=== PATIENT | female | born 1935 | race Caucasian/White ===

== ENCOUNTER 2017-07-26 11:21 | Inpatient (IN) | payer MEDICARE, BC ==
[~2017-07-26] VITALS: Ht 157.5 cm; Wt 119.7 kg
[~2017-07-26 11:21] MED LIST: ALBUTEROL S2.5 MG/.5 IN; ALBUTEROL S2.5 MG/.5 INH; ALPRAZOLAM0.5 MG PO; AMBIEN10 MG PO; ASTEPRO0.15 %; ATIVAN0.5 MG PO; AUGMENTIN OR; B-12500 MC1 OR; B12 LIQUID PO; B12-ACTIVE1 MG PO; BENAZEPRIL20 MG PO; BIOTUSSIN PO; CALCIUM + D600 MG PO; CARDIZEM CD 180 PO; CARTIA XT240 MG/24 PO; CARVEDILOL3.125 MG OR; CEPHALEXIN500 MG OR; CLARITIN10 M1 PO; CLARITIN10 MG OR; CLARITIN10 MG PO; CLARITIN5 MG PO; COMBIVENT IN; CORDARONE/200 MG/TAB OR; CORDARONE200 MG PO; COREG6.25 MG OR; COUMADIN3 MG PO; COUMADIN6 MG PO; DIGOXIN0.125 MG PO; DILTIAZEM240 MG PO; FERROUS SUL2 OR; GLIPIZIDE10 MG PO; GLYBURID MCR1.5 MG OR; GLYBURID MCR3 MG PO; GLYBURID MCR6 M1 PO; HYDROCHLOROT12.5 MG PO; HYDROCO/APAP1 TA1 OR; IMIPRAM HCL50 MG OR; IMIPRAM HCL50 MG PO; IPRATROPIUM BROMIDE/ IN; KEFLEX500 MG PO; LANOXIN0.25 MG PO; LASIX 40 MG TAB40 MG PO; LEVEMIR SC; LEVEMIR1000 UNITS SC; LEVOTHROID175 MCG OR; LEVOTHYROXIN112 MCG PO; LEVOTHYROXIN150 MC1 PO; LEVOTHYROXIN150 MCG PO; LEVOTHYROXIN175 MCG PO; LEVOTHYROXIN200 MC2 PO; LOPRESSOR25 MG PO; LORAZEPAM0.5 MG PO; LORTAB 7.57.5 MG/TAB PO; MEDDOSEPAK PO; MELATONIN5 M3 PO; METFORMIN1000 MG PO; POT CHLORIDE10 ME5 PO; PREDNISONE10 MG PO; ROBITUSSIN AC10 ML OR; TOFRANIL50 MG OR; ULTRAM50 M1 PO; VANTIN200 M1 PO; WARFARIN3 MG PO; WARFARIN5 MG OR; WARFARIN6 MG PO
--- NOTE | 2017-07-26 11:21 | NUR ---
TO ROOM 14 VIA STRETCHER BY EMS. ALERT. COOPERATIVE. TAKES FEW STEPS WITH WALKER AT HOME. LIVES ALONE BUT HAS CAREGIVERS.
[2017-07-26 13:14] LABS: HEMATOCRIT 34.8 % (37.0-47.0); HEMOGLOBIN 11.2 g/dl (12.0-16.0); IMMATURE GRANULOCYTES 1.2 % (0.0-1.0); MEAN CORPUSCULAR HGB 28.6 pG CALC (26.0-32.0); MEAN CORPUSCULAR HGB CONC 32.2 g/L CALC (32.0-36.0); NEUT# 7.62 thou/uL (2.00-7.15); RED BLOOD COUNT 3.91 mill/uL (4.20-5.60); RED CELL DISTRI WIDTH 17.1 % (11.5-15.5)
[2017-07-26 13:28] LABS: ALBUMIN 3.7 g/dL (3.2-5.0); ALKALINE PHOSPHATASE 99 u/l (38-126); ANION GAP 15 (6-22 (CALC)); BILIRUBIN, TOTAL 0.5 mg/dL (0.0-1.4); BUN 25 mg/dL (8-23); BUN/CREATININE RATIO 25 (12-20 (CALC)); CALCIUM 9.3 mg/dL (8.4-10.2); CARBON DIOXIDE 34 mmol/l (22-30); CHLORIDE 94 mmol/l (95-108); GFR 53 ML/MIN (>=60 (CALC)); GFR FOR AFR.AMER. > 60 ML/MIN (>=60 (CALC)); GLUCOSE 241 mg/dL (82-115); POTASSIUM 3.1 mmol/l (3.5-5.1); SGOT/AST 20 u/l (9-36); SGPT/ALT 40 u/l (11-66); SODIUM 140 mmol/l (137-146); TOTAL PROTEIN 7.4 g/dL (6.3-8.2)
[2017-07-26 13:37] LABS: MYOGLOBIN 94 ng/mL (0 - 62)
--- NOTE | 2017-07-26 13:55 | NUR ---
SBAR PRINTED TO FLOOR
[2017-07-26 14:05] LABS: URINE BILIRUBIN - DIPSTICK NEGATIVE (NEGATIVE); URINE BLOOD DIPSTICK NEGATIVE (NEGATIVE); URINE CLARITY CLEAR; URINE COLOR YELLOW; URINE GLUCOSE - DIPSTICK NEGATIVE (NEGATIVE); URINE KETONE NEGATIVE (NEGATIVE); URINE LEUK ESTERASE NEGATIVE (NEGATIVE); URINE NITRITE - DIPSTICK NEGATIVE (Negative); URINE PH 6.5 (4.5-8.0); URINE PROTEIN - DIPSTICK NEGATIVE (NEG-TRACE); URINE UROBILINOGEN - DIPSTICK 0.2 E.U./dL (0.2)
[2017-07-26] MEDS ORDERED: LEVEMIR100 UNIT/M SC (15:38)
--- NOTE | 2017-07-26 15:59 | NUR ---
DURING HER STAY IN ER, PT HAD MOROCHO 18F PLACED, IV ESTABLISHED WITH BLOOD DRAW, MED LIST UPDATED. PT TAKEN TO ICU-2 OVERFLOW PT, REPORT WAS TO TRACIE.
[2017-07-26 16:00] VITALS: BP 119/62
--- NOTE | 2017-07-26 16:00 | NUR ---
PT ARRIVED TO FLOOR VIA STRETCHER ACCOMPANIED BY NIRU GARCIA. PT ASSISTED TO STANDING SCALE BY STAFF X 2 AND THEN TO BED. LIMITED ROM BILATERAL LEGS R/T EDEMA. FALL PRECAUTIONS REVIEWED. PLAN OF CARE DISCUSSED. REPORTING OF CONCERNS ENCOURAGED. PT ORIENTED TO ROOM AND EQUIPMENT. CALL LIGHT REVIEWED AND IN REACH. NO SOB NOTED. PT DENIES PAIN.
[2017-07-26 16:27] LABS: INTERNATIONAL NORMALIZED RATIO 1.5 RATIO (0.7-1.3); PROTHROMBIN TIME 17.4 SECONDS (9.0-12.5)
--- NOTE | 2017-07-26 17:33 | NUR ---
Scr: 1.0 Height: 60.0 Inches Weight: 125 Kilograms Diagnosis: leg cellulitis, COPD exacerbation BloodCultures pending IBW (kg): 45.50 Dosing wt(kg): 125 Estimated CRCL (ml/min): 53.8 CRCL method: Cockcroft and Gault using adjusted body weight Drug selected: Vancomycin Loading dose (mg): 0 Vd (liters): 93.8 (factor used: 0.75 L/kg) Elimination rate constant (hr-1): 0.049 Half life (hrs): 14.15 Recommended dose (mg): 1000 Interval (hrs): 12 Infusion time: 2.0 Predicted peak (mcg/ml): 22.8 Predicted trough: 13.97 Total body weight is used in all cases for vancomycin dosing. Vancomycin trough to be drawn on 07/28/17 at 0730, 30 minutes prior to the fourth dose. Pharmacy to follow and make recommendations for dose adjustments.
--- NOTE | 2017-07-26 17:34 | NUR ---
FILIBERTO CORRIGAN IN TO SEE PT AT THIS TIME.
--- NOTE | 2017-07-26 19:05 | NUR ---
REPORT FROM NIRU HODGES. ASSUMED PT. CARE.
[2017-07-26 20:00] VITALS: BP 97/40
--- NOTE | 2017-07-26 20:13 | NUR ---
PT. FOUND AWAKE, ALERT, ORIENTED X 3. NO RESP DISTRESS NOTED. SLIGHTLY HYPOTENSIVE, BUT DENIES SYMPTOMS. SKIN WARM AND DRY. SCANT CLEAR DRAINAGE NOTED FROM A LARGE BLISTER THAT THE PATIENT STATES POPPED THIS AM. STATES HER INCREASED REDNESS, BLISTERING AND SWELLING STARTED THIS AM. AFEBRILE. GOOD DISTIL PULSES THROUGHOUT. MURMUR NOTED UPON AUSCULTATION. CLEAR TO UPPER LUNG SATORGA, DIMINISHED TO BASES WHICH MAY BE DUE TO PT. MORBIDLY OBESE BODY HABITUS. IV MAG SULFATE/POTASSIUM CHLORIDE AND VANCOMYCIN INFUSING WITHOUT SX OF INFILTRATION OR EXTRAVASATION.
--- NOTE | 2017-07-26 20:50 | NUR ---
PT. WITH N/V AT THIS TIME. ONLY CLEAR FROTHY PHLEGM LIKE MATERIAL EXPECTORATED. THICK CLEAR MUCOUSY FLUID NOTED. MD CONTACTED AND NEW ORDERS RECEIVED FOR ANTIEMETIC. MEDICATED WITH INSULIN ACCUCHECK 186. WILL CONTINUE TO MONITOR FOR MEDICATION EFFECT.
--- NOTE | 2017-07-26 21:45 | NUR ---
PT. CLEANSED OF EMESIS, GOWN AND LINENS CHANGED. IV VANCO CONTINUES TO INFUSE. K+ RIDER COMPLETE AT THIS TIME. MAG SULFATE DRIP CONTINUES TO INFUSE. NO REACTIONS NOTED TO EACH SITE. PT. PROVIDED WITH ROTATION FAN AND BLANKET PER HER REQUEST. CALL LIGHT REMAINS WITHIN REACH. WILL CONTINUE TO MONITOR FOR APNEA, LOW SPO2 THROUGH THE NIGHT.
[2017-07-27] VITALS: BP 89/40
--- NOTE | 2017-07-27 00:05 | NUR ---
ZOSYN INFUSING WITHOUT SIGNS OF INFILTRATION OR EXTRAVASATIONS. NO REACTIONS NOTED TO INFUSING ZOSYN. PT. REPORTS IMPROVEMENT IN SX OF NAUSEA. DENIES N/V AT THIS TIME. REMAINS A-FIB AT THIS TIME. DENIES COMPLAINTS OF PAIN OR NEED. REMAINS HYPOTENSIVE BUT CONTINUES TO DENY COMPLAINTS OF DIZZINESS OR LIGHTHEADEDNESS. CALL LIGHT REMAINS WITHIN REACH. WILL CONTINUE TO ASSESS.
--- NOTE | 2017-07-27 03:55 | NUR ---
PT. RESTING IN BED WITH EYES CLOSED. RESPS EVEN AND UNLABORED. SPO2 REMAINS SLIGHTLY LOW AT 92-95% ON 2L NC. PT. REMAINS IN A-FIB WITH RATE BETWEEN 90-115 A-FIB. DENIES COMPLAINTS OF PAIN OR NEED. CALL LIGHT REMAINS WITHIN REACH.
[2017-07-27 04:00] VITALS: BP 98/46
--- NOTE | 2017-07-27 05:20 | NUR ---
LAB AT BEDSIDE AT THIS TIME. PT. C/O MODERATE/SEVERE LOWER BACK PAIN. PT. STATES SHE NORMALLY TAKES A PILL AT HOME FOR LOWER BACK PAIN, BUT SHE IS UNSURE WHAT IT IS. NOTIFIED OF PT. C/O PAIN.
--- NOTE | 2017-07-27 06:05 | NUR ---
LAB UNABLE TO OBTAIN BLOOD SPECIMEN. THIS RN WITH DRAW AT THIS TIME. SPECIMEN OBTAINED AND SENT TO LAB. PT. DENIES ANY NEW COMPLAINT OR NEED AT THIS TIME.
[2017-07-27 06:17] LABS: HEMATOCRIT 32.5 % (37.0-47.0); HEMOGLOBIN 10.7 g/dl (12.0-16.0); IMMATURE GRANULOCYTES 2.2 % (0.0-1.0); MEAN CELL VOLUME 89.5 fL CALC (80.0-100.0); MEAN CORPUSCULAR HGB 29.5 pG CALC (26.0-32.0); MEAN CORPUSCULAR HGB CONC 32.9 g/L CALC (32.0-36.0); RED BLOOD COUNT 3.63 mill/uL (4.20-5.60); RED CELL DISTRI WIDTH 17.3 % (11.5-15.5)
[2017-07-27 06:27] LABS: CALCIUM 8.1 mg/dL (8.4-10.2); CREATININE 1.4 mg/dL (0.5-1.0); POTASSIUM 3.2 mmol/l (3.5-5.1)
[2017-07-27 06:57] LABS: MANUAL DIFFERENTIAL YES; PLATELET COUNT 206 thou/uL (130-400)
--- NOTE | 2017-07-27 07:20 | NUR ---
PT RESTING IN BED, AM ASSESSMENT COMPLETED SEE INTERVENTIONS PT HAS 3-4+ EDEMA TO BILATERAL LE WITH REDNESS AND BLISTERS NOTED, PT STATES HER BLE HAVE BEEN RED AND EDEMATOUS FOR 40+ YRS, PT IS MORBIDLY OBESE AND STATES AT HOME SHE HAS A INFUSION RN THAT HELPS HER DURING THE DAY, STATES SHE IS ABLE TO WALK FROM RECLINER TO BATHROOM, BUT OTHERWISE SHE IS IN HER CHAIR ALL DAY, STATES SHE HAS A LIFT CHAIR AND LIFT BED AT HOME, AND THAT SHE WEARS A CPAP MACHINE AT NIGHT, HER "FRIEND" IS SUPPOSED TO BRING IN HER MEDICATIONS TODAY (PER PT) AT MD REQUEST. TELE CONTINUES READING SR RATE IN THE 90'S, BP STABLE IMPROVED THIS AM, PT DENIES ANY COMPLAINTS EXCEPT FOR OCCASIONAL BACK PAIN RELATED TO "THE BED" CALL ELIZALDE WITHIN REACH, COMFORT MEASURES PROVIDED, WILL CONTINUE TO MONITOR.
[2017-07-27 07:23] LABS: BAND 28 % (0-8)
[2017-07-27 07:24] LABS: PLATELET ESTIMATE NORMAL
[2017-07-27 08:00] VITALS: BP 127/61
--- NOTE | 2017-07-27 08:00 | NUR ---
AM MEAL SET UP ASSIST PROVIDED, PT MAX ASSIST TO SIT UP ON EDGE OF BED, CALL ELIZALDE WITHIN REACH.
[2017-07-27 08:25] LABS: INTERNATIONAL NORMALIZED RATIO 1.7 RATIO (0.7-1.3); PROTHROMBIN TIME 19.5 SECONDS (9.0-12.5)
[2017-07-27 08:26] LABS: CHOLESTEROL HDL RATIO 4.3 (<4.4 (CALC))
--- NOTE | 2017-07-27 10:09 | NUR ---
PT BATHED BY BOW REHAIRER AND LINENS CHANGED, CALL ELIZALDE WITHIN REACH IV ABT CONTINUES WITHOUT INCIDENT, AND SHEKHAR DE LOS SANTOS INTO SEE PATIENT EARLIER, PLAN OF CARE DISCUSSED, WILL CONTINUE TO MONITOR.
[2017-07-27 12:00] VITALS: BP 125/67
--- NOTE | 2017-07-27 12:52 | NUR ---
PT RESTING, BP REMAINS IMPROVED, APPETITE GOOD WITH ADEQUATE PO INTAKE, IVF INFUSING AT PRESCRIBED RATE, CALL ELIZALDE WITHIN REACH
--- NOTE | 2017-07-27 14:16 | NUR ---
REPOSITIONS SELF FOR COMFORT, OFFERS NO NEW COMPLAINTS, CALL ELIZALDE WITHIN REACH, WILL CONTINUE TO MONITOR.
[2017-07-27 14:24] LABS: HEMATOCRIT 31.2 % (37.0-47.0); HEMOGLOBIN 10.1 g/dl (12.0-16.0); MEAN CELL VOLUME 90.2 fL CALC (80.0-100.0); MEAN CORPUSCULAR HGB 29.2 pG CALC (26.0-32.0); MEAN CORPUSCULAR HGB CONC 32.4 g/L CALC (32.0-36.0); NEUT# 20.68 thou/uL (2.00-7.15); RED BLOOD COUNT 3.46 mill/uL (4.20-5.60); RED CELL DISTRI WIDTH 17.4 % (11.5-15.5)
--- NOTE | 2017-07-27 17:58 | NUR ---
PM COVERAGE GIVEN AND ABT INFUSING ORDERED, CALL ELIZALDE WITHIN REACH, AND SET UP ASSIST PROVIDED FOR PM MEAL, WILL CONTINUE TO MONITOR.
--- NOTE | 2017-07-27 19:45 | NUR ---
PT IS ALERT AND ORIENTED X3, DENIES PAIN OR NEEDS AT THIS TIME, CONTINUES SR ON MONITOR, HR 98 AT THIS TIME, VSS, LUNGS ARE CLEAR ON AUSCULTATION WITH DIMINISHED BIBASILAR, IV SITE IS PATENT, NO SIGNS OF INFILTRATION NOTED, MORBID OBESITY NOTED, HAS REDNESS WITH WEEPING BLISTERING AND 4+ EDEMA TO BLE, SEE PICTURE IN CHART, RESP ARE EVEN AND UNLABORED ON 2LPM VIA NC, STATES USES CIPAP AT HOME, DID NOT BRING IT, MOROCHO DRAINING BY GRAVITY SMALL AMOUNTS OF DARK MUMTAZ URINE, TINY RED CLOTS NOTED ON TUBING, PT IS ON COUMADIN, COLLECTED URINE SAMPLE AND SENT TO LAB, EXPLAINED PLAN OF CARE AND MED SCHEDULE PT VOICES UNDERSTANDING, SAFETY MEASURES IN PLACE, ENCOURAGED TO CALL IF NEEDED, CALL ELIZALDE AT REACH.
[2017-07-27 20:00] VITALS: BP 140/76
--- NOTE | 2017-07-27 20:47 | NUR ---
ACCU CHECK/FINGERSTICK 331
[2017-07-27 20:50] LABS: URINE BILIRUBIN - DIPSTICK NEGATIVE (NEGATIVE); URINE BLOOD DIPSTICK LARGE (NEGATIVE); URINE COLOR YELLOW; URINE GLUCOSE - DIPSTICK NEGATIVE (NEGATIVE); URINE KETONE NEGATIVE (NEGATIVE); URINE LEUK ESTERASE SMALL (Negative); URINE NITRITE - DIPSTICK NEGATIVE (Negative); URINE PH 5.5 (4.5-8.0); URINE PROTEIN - DIPSTICK TRACE mg/dL (NEG-TRACE); URINE UROBILINOGEN - DIPSTICK 0.2 E.U./dL (0.2)
[2017-07-27 20:51] LABS: URINE CLARITY CLOUDY
[2017-07-27 20:52] LABS: URINE BACTERIA MODERATE hpf; URINE EPITHELIAL CELLS MANY EPI/hpf (0-FEW); URINE RBC 25-50 RBC/hpf (0-5)
--- NOTE | 2017-07-27 21:40 | NUR ---
RT IN PT ROOM ADMINISTERING A BREATHING TX.
--- NOTE | 2017-07-27 23:18 | NUR ---
PT UP TO THE BSC, HAD A LARGE BM, SOFT, BROWN, TOLERATED ACTIVITY WELL, DENIES NEEDS OR PAIN AT THIS TIME, AT BEDSIDE, WILL CONTINUE TO MONITOR.
[2017-07-28] VITALS (8 sets, daily range): BP systolic 93–128; BP diastolic 47–94
--- NOTE | 2017-07-28 00:41 | NUR ---
PT AWAKE, WATCHING TV, ALERT AND ORIENTED X3, DENIES FEELING SOB, RESP ARE EVEN AND UNLABORED, NO DISTRESS NOTED, DENIES NEEDS OR PAIN AT THIS TIME, AFEBRILE, VSS, WILL CONTINUE TO MONITOR. CALL ELIZALDE AT REACH.
--- NOTE | 2017-07-28 04:00 | NUR ---
KENO WRITER / RUNNER UNABLE TO DRAW LABS, THIS CRAB BACKER UNABLE TO DRAW LABS AND UNSUCESSFUL NEW IV START D/T MORBID OBESITY, CALLED HOUSE SUP FOR NEW IV START, 22G RAC AND 22G R WRIST FOUND OCCLUDED, REMOVED IV SITES D/T OCCLUSION, IV LOREN TIP INTACT. NO DISTRESS NOTED DURING NEW IV START ATTEMPT, PT TOLERATED ACTIVITY WELL, WILL CONTINUE TO MONITOR. CALL ELIZALDE AT [facility].
--- NOTE | 2017-07-28 05:48 | NUR ---
LAB TECHN, AMY, AND HOUSE SUP IN PT ROOM, TRYING TO DRAW MORNING LABS AND START A NEW IV.
[2017-07-28 06:09] LABS: HEMOGLOBIN 10.5 g/dl (12.0-16.0); IMMATURE GRANULOCYTES 0.7 % (0.0-1.0); MEAN CELL VOLUME 88.9 fL CALC (80.0-100.0); MEAN CORPUSCULAR HGB 29.2 pG CALC (26.0-32.0); MEAN CORPUSCULAR HGB CONC 32.8 g/L CALC (32.0-36.0); NEUT# 12.26 thou/uL (2.00-7.15); RED BLOOD COUNT 3.6 mill/uL (4.20-5.60); RED CELL DISTRI WIDTH 17.3 % (11.5-15.5)
--- NOTE | 2017-07-28 06:15 | NUR ---
SEALER SANDER JORJE CHEEMA RN, ABLE TO START A NEW IV SITE AFTER X5 UNSUCCESSFUL ATTEMPTS, #24 IN RIG CHEST WALL, WILL INFUSE ZOSYN PER ORDERS, PT C/O PAIN IN RIGHT SHOULDER AND BACK, STATES THIS IS CHRONIC PAIN, STATES WAS PREVIOUSLY MEDICATED WITH LORTAB AND "IT HELPED", NO PAIN MED ORDERS, WILL NOTIFY OF PT REQUEST. CALL ELIZALDE AT [facility], WILL CONTINUE TO MONITOR.
[2017-07-28 06:21] LABS: INTERNATIONAL NORMALIZED RATIO 2.1 RATIO (0.7-1.3)
[2017-07-28 06:25] LABS: CALCIUM 7.9 mg/dL (8.4-10.2); CREATININE 1.2 mg/dL (0.5-1.0); POTASSIUM 3.3 mmol/l (3.5-5.1)
--- NOTE | 2017-07-28 07:25 | NUR ---
PT RESTING IN BED, AM ASSESSMENT COMPLETED SEE INTERVENTIONS PT HAS 3-4+ EDEMA TO BILATERAL LE WITH REDNESS AND BLISTERS NOTED, PT CONFIRMS THIS IS NOT NEW PT EDUCATED REGARDING THE IMPORTANCE OF INCREASED ACTIVITY, STATES SHE IS ABLE TO WALK FROM RECLINER TO BATHROOM AT HOME, BUT OTHERWISE SHE IS IN HER CHAIR ALL DAY, STATES SHE HAS A LIFT CHAIR AND LIFT BED AT HOME, AND THAT SHE WEARS A CPAP MACHINE AT NIGHT, BUT DID NOT BRING IT WITH HER, PT DENIES ANY COMPLAINTS EXCEPT FOR OCCASIONAL BACK PAIN RELATED TO "THE BED" CALL ELIZALDE WITHIN REACH, COMFORT MEASURES PROVIDED, WILL CONTINUE TO MONITOR.
--- NOTE | 2017-07-28 08:00 | NUR ---
SET UP ASSIST PROVIDED FOR AM MEAL, CALL ELIZALDE WITHIN REACH, MAX ASSIST TO REPOSITION IN BED, WILL CONTINUE TO MONITOR
--- NOTE | 2017-07-28 08:52 | NUR ---
SHEKHAR DE LOS SANTOS IN TO SEE PATIENT
--- NOTE | 2017-07-28 10:20 | NUR ---
S: ABBY PRESCOTT is a 81 F who presents with SOB and cellulitis. O: VS: BP 113/59, P 68 beats/min, RR 18 breaths/min, T 98.1 W 119.748 kg, HT 5 ft 2 in, Scr= 1.2 ,CrCl= 37 ml/min Vancomycin trough = 17 mcg/ml (2 hrs prior to next scheduled dose) A: Preliminary Blood culture growing gram positive cocci in 1 of 2 sets. Urine culture is pending. Vancomycin trough is within therapeutic range. P: Patient is on Zosyn 3.375 g IV q6h and vancomycin 1 g IV q12h. Vancomycin ordered for pharmacy to dose. Continue vancomycin 1 g IV Q12H. Vancomycin trough to be drawn on 07/30/17 at 0730. Vancomycin goal trough is between 10-20 mcg/ml. Pharmacy will follow and or advise on antibiotics use as needed.
--- NOTE | 2017-07-28 11:15 | NUR ---
ACCU CHECK COMPLETED, WILL PROVIDE COVERAGE ORDERED, PT CONTINUES TO HAVE FLUID FILLED BLISTERS ON BILATERAL LE, IVF CONTINUE ORDERED. GOOD ASPIRATE NOTED WITH IV SITE
--- NOTE | 2017-07-28 12:02 | NUR ---
MEDICATED FOR COMAPLINTS OF PAIN IN R LULU, REPOSIOTIONED FOR COMFORT AND SET UP ASSIST PROVIDED FOR AFTERNOON MEAL
--- NOTE | 2017-07-28 14:18 | NUR ---
PHYSICAL THERAPY WORKED WITH PATIENT OOB TO CHAIR, CALL ELIZALDE WITHIN REACH
--- NOTE | 2017-07-28 16:21 | NUR ---
VISITOR AT BEDSIDE, OFFERS NO NEW COMPLAINTS, RESTING IN BED, IVF INFUSING AT KVO, CALL ELIZALDE WITHIN REACH.
--- NOTE | 2017-07-28 18:19 | NUR ---
set up assist provided for pm meal
--- NOTE | 2017-07-28 19:45 | NUR ---
PT AWAKE RESTING IN BED. PT IS ALERT AND ORIENTED X4. O2 N/C ON AT 2L. O2 SAT 96%. RESP EVEN AND UNLABORED. LUNGS REVEAL DIMINISHED BREATH SOUNDS IN BILAT BASES. ABD SOFT WITH BOWEL SOUNDS PRESENT. MOROCHO IS PATENT DRAINING MUMTAZ URINE WITH SEDIMENT. PT HAS +2 BILAT LOWER EXT EDEMA NOTED. PEDAL PULSES PALPATED BILAT. PT HAS 2 BLISTERED AREAS NOTED ON EACH BILAT LOWER EXT. NO WEEPING OR DRAINING NOTED. BILAT LOWER EXT ARE DISCOLORED WITH SKIN INTACT. IV SITE PATENT RT WRIST NSS AT KVO NO REDNESS,SWELLING OR TENDERNESS AT SITE. PT ASSISTED WITH REPOSITIONING. PT DENIES ANY PAIN OR DISCOMFORT. MONITOR READING ST HR 103. FREQUENT ROUNDS MADE. CALL ELIZALDE WITHIN REACH.
[2017-07-28] MEDS ORDERED: LOPRESSOR25 M1 PO (20:52)
[2017-07-28] MEDS ORDERED: CARDIZEM CD240 MG PO (20:53)
--- NOTE | 2017-07-28 22:00 | NUR ---
PT RESTING IN BED. RESP EVEN AND UNLABORED. VSS. IV SITE PATENT NO REDNESS OR SWELLING AT SITE. PT OFFERS NO COMPLAINTS. ATE EVENING SNACK. FREQUENT ROUNDS MADE. CALL ELIZALDE WITHIN REACH.
--- NOTE | 2017-07-28 22:40 | NUR ---
RECEIVED PATIENT FROM THE ICU VIA BED AND IN STABLE CONDITION. PATIENT SETTLED TO BED. VS 98.3-96-18, BP 93/73.
--- NOTE | 2017-07-28 22:45 | NUR ---
REPORT CALLED TO SAY MARRUFO ON MED SURG. PT TRANSFERRED VIA BED WITH HER BELONGINGS AND CELL PHONE.
--- NOTE | 2017-07-29 04:00 | NUR ---
NO APPARENT ACUTE CHANGES NOTED IN PATIENT'S CONDITION.
[2017-07-29 05:41] VITALS: BP 108/69
[2017-07-29 05:50] LABS: HEMATOCRIT 33.2 % (37.0-47.0); HEMOGLOBIN 10.4 g/dl (12.0-16.0); IMMATURE GRANULOCYTES 0.5 % (0.0-1.0); MEAN CELL VOLUME 91.5 fL CALC (80.0-100.0); MEAN CORPUSCULAR HGB 28.7 pG CALC (26.0-32.0); MEAN CORPUSCULAR HGB CONC 31.3 g/L CALC (32.0-36.0); NEUT# 7.43 thou/uL (2.00-7.15); RED BLOOD COUNT 3.63 mill/uL (4.20-5.60); RED CELL DISTRI WIDTH 17.3 % (11.5-15.5)
[2017-07-29 05:56] LABS: PROTHROMBIN TIME 22.7 SECONDS (9.0-12.5)
[2017-07-29 05:57] LABS: ANION GAP 15 (6-22 (CALC)); BUN 21 mg/dL (8-23); BUN/CREATININE RATIO 22 (12-20 (CALC)); CARBON DIOXIDE 32 mmol/l (22-30); CHLORIDE 99 mmol/l (95-108); CREATININE 0.9 mg/dL (0.5-1.0); GFR 60 ML/MIN (>=60 (CALC)); GFR FOR AFR.AMER. > 60 ML/MIN (>=60 (CALC)); GLUCOSE 115 mg/dL (82-115); MAGNESIUM 1.5 mg/dL (1.6-2.3); POTASSIUM 3.8 mmol/l (3.5-5.1); SODIUM 142 mmol/l (137-146)
--- NOTE | 2017-07-29 08:44 | NUR ---
ASSESSMENT IS COMPLETED: IV SITE IS FREE FROM REDNESS OR EDEMA. MOROCHO INTACT. CONTNUE TO OBSERVE AND MONITOR.
--- NOTE | 2017-07-29 10:16 | NUR ---
PATIENT WAS SEEN AT BEDSIDE TODAY. SHE WAS GIVEN MOD ASSIST FOR SUPINE TO SIT. MIN ASSIST FOR SCOOTING TOWARDS EDGE OF BED. PATIENT WAS ABLE TO PERFORM SIT TO STAND WITH STAND BY ASSIST. WITH ROLLING WALKER, PATIENT PERFORM PIVOT TRANSFER INTO THE BEDSIDE RECLINER WITH VERBAL CUES AND STAND BY ASSIST. PATIENT RECEIVED BREATHING TREATMENT WHILE SITTING IN THE BEDSIDE RECLINER.
[2017-07-29 11:40] VITALS: BP 129/83
--- NOTE | 2017-07-29 12:15 | NUR ---
PT HAS BEEN IN THE CHAIR, NO DISTRESS NOTED. IV SITE IS FREE FROM REDNESS OR EDEMA. CONTINUE TO OBSERVE AND MONITOR.
[2017-07-29] MEDS ORDERED: LEVOTHYROXIN112 MC1 PO (13:48)
[2017-07-29] MEDS ORDERED: TRAMADOL HCL50 MG PO (13:48)
[2017-07-29] MEDS ORDERED: FLORASTOR250 M1 PO (13:48)
[2017-07-29] MEDS ORDERED: CUBICIN RF500 MG IV (13:51)
[2017-07-29 15:16] VITALS: BP 104/70
--- NOTE | 2017-07-29 16:15 | NUR ---
PT IS BACK IN BED WITH NO DISTRESS NOTED. IV SITE IS FREE FROM REDNESS OR EDEMA.
--- NOTE | 2017-07-29 19:30 | NUR ---
BEDSIDE REPORT RECEIVED FROM TOMAS TAMAYO. PT SITTING UP IN BED AT THIS TIME. DENIES PAIN CURRENTLY. RESPIRATIONS EVEN AND UNLABORED ON 2L OF OXYGEN. PLAN OF CARE DISCUSSED. PT ENCOURAGED TO VERBALIZE CONCERNS. STATES UNDERSTANDING. BLISTERS REMAIN TO BLE WITH EDEMA AND REDNESS. IV SITE LEAKING. NEW IV STARTED TO RIGHT UPPER CHEST. COUDY YELLOW URINE DRAINING FROM INDWELLING MOROCHO CATHETER IN ADEQUATE AMOUNTS. SAFETY MEASURES IN PLACE. CALL LIGHT WITHIN REACH.
--- NOTE | 2017-07-30 00:18 | NUR ---
PT ASLEEP AT THIS TIME. NO SIGNS OF DISTRESS NOTED. REPSIRATIONS EVEN AND UNLABORED. PT TURNED EVERY 2 HOURS; MOROCHO CARE PROVIDED. USES CALL LIGHT NEEDED. SAFETY MEASURES IN PLACE. CALL LIGHT WITHIN REACH.
--- NOTE | 2017-07-30 02:43 | NUR ---
IV SITE TO RIGHT SUBCLAVIAN AREA APPEARS INFILTRATED AFTER VANCOMYCIN INFUSION. ALL STAFF NURSES ATTEMPTED NEW SITE MULTIPLE TIMES WITHOUT SUCCESS. PT CURRENTLY WITHOUT PATENT IV ACCESS. UNABLE TO INFUSE MIDNIGHT DOSE OF ZOSYN. WILL REPORT TO IN AM.
--- NOTE | 2017-07-30 04:00 | NUR ---
PT ASLEEP AT THIS TIME. NO SIGNS OF DISTRESS NOTED. RESPIRATIONS EVEN AND UNLABORED WITH OXYGEN IN PLACE. NO CHANGES IN ASSESSMENT. CONDITION IS STABLE. LOWER EXTREMITIES ELEVATED ON PILLOWS FOR SWELLING. BLISTERS REMAIN INTACT, NO SEEPING NOTED. SAFETY MEASURES IN PLACE. CALL LIGHT WITHIN REACH.
[2017-07-30 04:50] VITALS: BP 119/76
[2017-07-30 06:29] LABS: HEMATOCRIT 33.5 % (37.0-47.0); HEMOGLOBIN 10.5 g/dl (12.0-16.0); IMMATURE GRANULOCYTES 0.5 % (0.0-1.0); MEAN CELL VOLUME 90.8 fL CALC (80.0-100.0); MEAN CORPUSCULAR HGB 28.5 pG CALC (26.0-32.0); MEAN CORPUSCULAR HGB CONC 31.3 g/L CALC (32.0-36.0); NEUT# 6.23 thou/uL (2.00-7.15); RED BLOOD COUNT 3.69 mill/uL (4.20-5.60); RED CELL DISTRI WIDTH 17.1 % (11.5-15.5)
[2017-07-30 06:43] LABS: ANION GAP 12 (6-22 (CALC)); BUN 18 mg/dL (8-23); BUN/CREATININE RATIO 21 (12-20 (CALC)); CALCIUM 7.8 mg/dL (8.4-10.2); CARBON DIOXIDE 34 mmol/l (22-30); CHLORIDE 98 mmol/l (95-108); CREATININE 0.8 mg/dL (0.5-1.0); GFR > 60 ML/MIN (>=60 (CALC)); GFR FOR AFR.AMER. > 60 ML/MIN (>=60 (CALC)); GLUCOSE 150 mg/dL (82-115); MAGNESIUM 1.9 mg/dL (1.6-2.3); POTASSIUM 3.7 mmol/l (3.5-5.1); SODIUM 141 mmol/l (137-146)
[2017-07-30 06:45] LABS: INTERNATIONAL NORMALIZED RATIO 1.7 RATIO (0.7-1.3); PROTHROMBIN TIME 19.5 SECONDS (9.0-12.5)
--- NOTE | 2017-07-30 08:00 | NUR ---
ASSESSMENT IS COMPLETED: IV SITE IS FREE FROM REDNESS OR EDEMA. CONTINUE TO OBSERVE AND MONITOR.
[2017-07-30 09:28] VITALS: BP 98/60
--- NOTE | 2017-07-30 09:30 | NUR ---
Vancomycin consult Weight: 119.7 Kilograms Vancomycin single level analysis: Current dose being given: 1000 mg Current dosing interval: 12 hrs Current infusion time (hrs): 2 Single level Trough Data: Trough level obtained: 21 mcg/ml Timing of trough - Number of hours before next dose: 0.5 Hrs Desired peak: 30 mcg/ml Desired trough: 15 mcg/ml Estimated PK Parameters: New rate constant (rama): 0.039 hr-1 New half-life: 17.77 Hours New Vd from levels: 83.79 Liters (0.7 L/kg) Give Vancomycin 2000 mg Q24H Infuse over 2 hrs Expected Cpeak: 38 mcg/ml Expected Ctrough: 16.0 mcg/ml
--- NOTE | 2017-07-30 10:30 | NUR ---
PT'S MOROCHO DISCONTINUED CATHETER INTAC.T NO DISTRESS NOTED. IV SITE IS FROM REDNESS
[2017-07-30] MEDS ORDERED: KEFLEX500 M1 PO (11:13)
[2017-07-30] MEDS ORDERED: LEVEMIR100 UNIT/M SC (11:20)
--- NOTE | 2017-07-30 12:00 | NUR ---
PT IS SITING IN THE CHAIR ALL BELONGINGS SENT WITH BATH ATTENDANT, IV SITE REMOVED AND IS CDI. PT TOLERATED WELL.
--- NOTE | 2017-07-30 13:20 | NUR ---
DISCHARGE INSTRUCTIONS GIVEN AND VERBALIZED UNDERSTANDING Discharge instructions given. Patient verbalizes understanding of same. Discharged in stable condition via Wheelchair to Home with family. All belongings sent with pt.
== END 2017-07-30 13:11 | DRG 638 ==
LOC: ED 11:21 → ED-I 13:44 → ED 14:49 → ICU 14:50 → MS2 07-27 09:03 → ICU 07-27 09:03 → MS2 07-28 22:44
PROVIDERS: Emergency Medicine; Nurse Practitioner Family; ADMIT Internal Medicine; ATTEND Internal Medicine
PROC: 0T9B70Z Drainage of Bladder with Drainage Device, Via Natural or Artificial Opening (ICD-10-PCS; principal; 2017-07-26)
DX: E11.628 Type 2 diabetes mellitus with other skin complications (principal); L03.116 Cellulitis of left lower limb; N17.9 Acute kidney failure, unspecified; L03.115 Cellulitis of right lower limb; J44.1 Chronic obstructive pulmonary disease with (acute) exacerbation; Z68.42 Body mass index [BMI] 45.0-49.9, adult; I13.0 Hypertensive heart and chronic kidney disease with heart failure and stage 1 through stage 4 chronic kidney disease, or unspecified chronic kidney disease; I50.32 Chronic diastolic (congestive) heart failure; E11.22 Type 2 diabetes mellitus with diabetic chronic kidney disease; I48.2 Chronic atrial fibrillation; E86.0 Dehydration; Z99.81 Dependence on supplemental oxygen; E66.01 Morbid (severe) obesity due to excess calories; N18.9 Chronic kidney disease, unspecified; G47.33 Obstructive sleep apnea (adult) (pediatric); G89.29 Other chronic pain; M54.5 Low back pain; E83.42 Hypomagnesemia; E87.6 Hypokalemia; N31.9 Neuromuscular dysfunction of bladder, unspecified; Z79.01 Long term (current) use of anticoagulants; Z79.4 Long term (current) use of insulin; Z59.1 Inadequate housing
CPT/HCPCS: J3370; J3475

== ENCOUNTER 2017-10-07 11:16 | Inpatient (IN) | payer MEDICARE, BC ==
[~2017-10-07] VITALS: Ht 157.5 cm; Wt 120.3 kg
[~2017-10-07 11:16] MED LIST changes: +CARDIZEM CD240 MG PO; +CUBICIN RF500 MG IV; +FLORASTOR250 M1 PO; +KEFLEX500 M1 PO; +LEVEMIR100 UNIT/M SC; +LEVOTHYROXIN112 MC1 PO; +LOPRESSOR25 M1 PO; +TRAMADOL HCL50 MG PO
[2017-10-07] MEDS ORDERED: COLACE100 MG PO (11:48)
[2017-10-07] MEDS ORDERED: HUMALOG100 UNIT/M SC (11:50)
[2017-10-07] MEDS ORDERED: KLOR-CON 1010 MEQ PO (11:55)
[2017-10-07] MEDS ORDERED: SINGULAIR10 MG PO (11:55)
[2017-10-07 12:26] LABS: HEMATOCRIT 35.3 % (37.0-47.0); HEMOGLOBIN 10.8 g/dl (12.0-16.0); IMMATURE GRANULOCYTES 0.6 % (0.0-1.0); MEAN CELL VOLUME 92.4 fL CALC (80.0-100.0); MEAN CORPUSCULAR HGB 28.3 pG CALC (26.0-32.0); MEAN CORPUSCULAR HGB CONC 30.6 g/L CALC (32.0-36.0); NEUT# 6.48 thou/uL (2.00-7.15); RED BLOOD COUNT 3.82 mill/uL (4.20-5.60); RED CELL DISTRI WIDTH 16.4 % (11.5-15.5)
[2017-10-07 12:47] LABS: ALBUMIN 3.8 g/dL (3.2-5.0); ALKALINE PHOSPHATASE 85 u/l (38-126); ANION GAP 10 (6-22 (CALC)); BILIRUBIN, TOTAL 0.5 mg/dL (0.0-1.4); BUN 20 mg/dL (8-23); BUN/CREATININE RATIO 23 (12-20 (CALC)); CALCIUM 7.9 mg/dL (8.4-10.2); CARBON DIOXIDE 36 mmol/l (22-30); CHLORIDE 99 mmol/l (95-108); CREATININE 0.9 mg/dL (0.5-1.0); GFR 60 ML/MIN (>=60 (CALC)); GFR FOR AFR.AMER. > 60 ML/MIN (>=60 (CALC)); GLUCOSE 192 mg/dL (82-115); SGOT/AST 28 u/l (9-36); SGPT/ALT 29 u/l (11-66); SODIUM 141 mmol/l (137-146); TOTAL PROTEIN 7.3 g/dL (6.3-8.2)
[2017-10-07 12:59] LABS: MYOGLOBIN 31 ng/mL (0 - 62)
[2017-10-07 13:00] LABS: URINE BILIRUBIN - DIPSTICK NEGATIVE (NEGATIVE); URINE BLOOD DIPSTICK NEGATIVE (NEGATIVE); URINE CLARITY HAZY; URINE COLOR YELLOW; URINE GLUCOSE - DIPSTICK NEGATIVE (NEGATIVE); URINE KETONE NEGATIVE (NEGATIVE); URINE LEUK ESTERASE NEGATIVE (NEGATIVE); URINE NITRITE - DIPSTICK POSITIVE (Negative); URINE PROTEIN - DIPSTICK NEGATIVE (NEG-TRACE); URINE UROBILINOGEN - DIPSTICK 0.2 E.U./dL (0.2)
[2017-10-07 13:01] LABS: URINE BACTERIA MANY hpf; URINE EPITHELIAL CELLS MODERATE EPI/hpf (0-FEW)
[2017-10-07 14:35] VITALS: BP 108/74
[2017-10-07 19:01] LABS: INTERNATIONAL NORMALIZED RATIO 2.2 RATIO (0.7-1.3); PROTHROMBIN TIME 24.9 SECONDS (9.0-12.5)
[2017-10-07 19:10] VITALS: BP 112/65
[2017-10-08] VITALS (17 sets, daily range): BP systolic 110–148; BP diastolic 51–89
[2017-10-08 06:02] LABS: HEMATOCRIT 34.2 % (37.0-47.0); HEMOGLOBIN 10.6 g/dl (12.0-16.0); MEAN CELL VOLUME 92.7 fL CALC (80.0-100.0); MEAN CORPUSCULAR HGB 28.7 pG CALC (26.0-32.0); RED BLOOD COUNT 3.69 mill/uL (4.20-5.60); RED CELL DISTRI WIDTH 16.1 % (11.5-15.5)
[2017-10-08 06:18] LABS: INTERNATIONAL NORMALIZED RATIO 2.5 RATIO (0.7-1.3); PROTHROMBIN TIME 28.1 SECONDS (9.0-12.5)
[2017-10-08 06:26] LABS: ANION GAP 11 (6-22 (CALC)); BUN 17 mg/dL (8-23); BUN/CREATININE RATIO 21 (12-20 (CALC)); CALCIUM 7.8 mg/dL (8.4-10.2); CALCULATED LDLCHOLESTEROL 118 mg/dL (62-129 (CALC)); CARBON DIOXIDE 36 mmol/l (22-30); CHLORIDE 100 mmol/l (95-108); CHOLESTEROL HDL RATIO 4.9 (<4.4 (CALC)); CREATININE 0.8 mg/dL (0.5-1.0); GFR > 60 ML/MIN (>=60 (CALC)); GFR FOR AFR.AMER. > 60 ML/MIN (>=60 (CALC)); GLUCOSE 122 mg/dL (82-115); HDL CHOLESTEROL 37 mg/dL (>=40); POTASSIUM 4.3 mmol/l (3.5-5.1); SODIUM 143 mmol/l (137-146); TOTAL CHOLESTEROL 179 mg/dl (0-199); TOTAL TRIGLYCERIDES 119 mg/dl (30-149); VLDL CHOLESTROL 24 mg/dl (0-48 (CALC))
[2017-10-09] VITALS (23 sets, daily range): BP systolic 103–149; BP diastolic 53–73
[2017-10-09 05:23] LABS: HEMATOCRIT 34.6 % (37.0-47.0); HEMOGLOBIN 10.9 g/dl (12.0-16.0); MEAN CELL VOLUME 91.3 fL CALC (80.0-100.0); MEAN CORPUSCULAR HGB 28.8 pG CALC (26.0-32.0); MEAN CORPUSCULAR HGB CONC 31.5 g/L CALC (32.0-36.0); RED BLOOD COUNT 3.79 mill/uL (4.20-5.60); RED CELL DISTRI WIDTH 15.4 % (11.5-15.5)
[2017-10-09 05:27] LABS: ANION GAP 13 (6-22 (CALC)); BUN 24 mg/dL (8-23); BUN/CREATININE RATIO 32 (12-20 (CALC)); CALCIUM 8.2 mg/dL (8.4-10.2); CARBON DIOXIDE 33 mmol/l (22-30); CHLORIDE 99 mmol/l (95-108); CREATININE 0.8 mg/dL (0.5-1.0); GFR > 60 ML/MIN (>=60 (CALC)); GFR FOR AFR.AMER. > 60 ML/MIN (>=60 (CALC)); GLUCOSE 207 mg/dL (82-115); MAGNESIUM 1.8 mg/dL (1.6-2.3); POTASSIUM 4.3 mmol/l (3.5-5.1); SODIUM 140 mmol/l (137-146)
[2017-10-09 06:03] LABS: INTERNATIONAL NORMALIZED RATIO 1.9 RATIO (0.7-1.3); PROTHROMBIN TIME 21.5 SECONDS (9.0-12.5)
[2017-10-10] VITALS (20 sets, daily range): BP systolic 106–154; BP diastolic 56–78
[2017-10-10 04:41] LABS: HEMATOCRIT 33.5 % (37.0-47.0); HEMOGLOBIN 10.7 g/dl (12.0-16.0); MEAN CELL VOLUME 90.1 fL CALC (80.0-100.0); MEAN CORPUSCULAR HGB 28.8 pG CALC (26.0-32.0); MEAN CORPUSCULAR HGB CONC 31.9 g/L CALC (32.0-36.0); RED BLOOD COUNT 3.72 mill/uL (4.20-5.60); RED CELL DISTRI WIDTH 15.7 % (11.5-15.5)
[2017-10-10 04:54] LABS: ANION GAP 13 (6-22 (CALC)); BUN 40 mg/dL (8-23); BUN/CREATININE RATIO 47 (12-20 (CALC)); CALCIUM 8.2 mg/dL (8.4-10.2); CARBON DIOXIDE 31 mmol/l (22-30); CHLORIDE 99 mmol/l (95-108); CREATININE 0.8 mg/dL (0.5-1.0); GFR > 60 ML/MIN (>=60 (CALC)); GFR FOR AFR.AMER. > 60 ML/MIN (>=60 (CALC)); GLUCOSE 285 mg/dL (82-115); POTASSIUM 4.5 mmol/l (3.5-5.1); SODIUM 138 mmol/l (137-146)
[2017-10-10 04:58] LABS: INTERNATIONAL NORMALIZED RATIO 1.8 RATIO (0.7-1.3); PROTHROMBIN TIME 20.6 SECONDS (9.0-12.5)
[2017-10-11] VITALS (8 sets, daily range): BP systolic 110–139; BP diastolic 7–84
[2017-10-11 05:21] LABS: HEMATOCRIT 33.7 % (37.0-47.0); HEMOGLOBIN 10.8 g/dl (12.0-16.0); IMMATURE GRANULOCYTES 0.8 % (0.0-1.0); MEAN CELL VOLUME 89.6 fL CALC (80.0-100.0); MEAN CORPUSCULAR HGB 28.7 pG CALC (26.0-32.0); NEUT# 10.24 thou/uL (2.00-7.15); RED BLOOD COUNT 3.76 mill/uL (4.20-5.60); RED CELL DISTRI WIDTH 15.9 % (11.5-15.5)
[2017-10-11 05:34] LABS: ANION GAP 13 (6-22 (CALC)); BUN 48 mg/dL (8-23); BUN/CREATININE RATIO 61 (12-20 (CALC)); CALCIUM 8.2 mg/dL (8.4-10.2); CARBON DIOXIDE 31 mmol/l (22-30); CHLORIDE 99 mmol/l (95-108); CREATININE 0.8 mg/dL (0.5-1.0); GFR > 60 ML/MIN (>=60 (CALC)); GFR FOR AFR.AMER. > 60 ML/MIN (>=60 (CALC)); GLUCOSE 289 mg/dL (82-115); POTASSIUM 4.4 mmol/l (3.5-5.1); SODIUM 139 mmol/l (137-146)
[2017-10-11 05:41] LABS: PROTHROMBIN TIME 22.7 SECONDS (9.0-12.5)
[2017-10-11] MEDS ORDERED: PROAIR HFA IN (10:41)
[2017-10-11] MEDS ORDERED: IPRATROPIU0.5 MG/3 M NEB (10:41)
[2017-10-11] MEDS ORDERED: ALPRAZOLAM0.5 MG PO (10:41)
[2017-10-11] MEDS ORDERED: PREDNISONE10 MG PO (10:41)
[2017-10-11] MEDS ORDERED: KEFLEX500 M1 PO (10:41)
[2017-10-11] MEDS ORDERED: LEVEMIR100 UNIT/M SC (10:43)
[2017-10-11] MEDS ORDERED: ADVAIR DISK1 IN (11:02)
== END 2017-10-11 14:25 | disposition home health service (06) | DRG 291 ==
LOC: ED 11:16 → ED-I 12:59 → ED 13:10 → MS2 13:11 → ICU 13:11
PROVIDERS: Family Medicine; Nurse Practitioner Family; ADMIT Internal Medicine; ATTEND Internal Medicine
PROC: 0T9B80Z Drainage of Bladder with Drainage Device, Via Natural or Artificial Opening Endoscopic (ICD-10-PCS; principal; 2017-10-07)
PROC: 5A09357 Assistance with Respiratory Ventilation, Less than 24 Consecutive Hours, Continuous Positive Airway Pressure (ICD-10-PCS; 2017-10-08)
DX: I13.0 Hypertensive heart and chronic kidney disease with heart failure and stage 1 through stage 4 chronic kidney disease, or unspecified chronic kidney disease (principal); I50.33 Acute on chronic diastolic (congestive) heart failure; J96.21 Acute and chronic respiratory failure with hypoxia; E11.22 Type 2 diabetes mellitus with diabetic chronic kidney disease; J96.22 Acute and chronic respiratory failure with hypercapnia; J44.1 Chronic obstructive pulmonary disease with (acute) exacerbation; Z68.42 Body mass index [BMI] 45.0-49.9, adult; E66.2 Morbid (severe) obesity with alveolar hypoventilation; N39.0 Urinary tract infection, site not specified; N18.9 Chronic kidney disease, unspecified; I89.0 Lymphedema, not elsewhere classified; Z79.01 Long term (current) use of anticoagulants; Z79.4 Long term (current) use of insulin; I48.2 Chronic atrial fibrillation; F41.9 Anxiety disorder, unspecified; E03.9 Hypothyroidism, unspecified; B96.1 Klebsiella pneumoniae [K. pneumoniae] as the cause of diseases classified elsewhere
CPT/HCPCS: J3370

== ENCOUNTER 2017-11-05 17:46 | Observation (INO) | payer MEDICARE, BC ==
[~2017-11-05] VITALS: Ht 157.5 cm; Wt 120.3 kg
[~2017-11-05 17:46] MED LIST changes: +ADVAIR DISK1 IN; +COLACE100 MG PO; +HUMALOG100 UNIT/M SC; +IPRATROPIU0.5 MG/3 M NEB; +KLOR-CON 1010 MEQ PO; +LASIX 80 MG TAB80 M1 PO; +LEVOTHYROXINE175 MCG PO; +PROAIR HFA IN; +SINGULAIR10 MG PO
[2017-11-05 18:26] LABS: HEMATOCRIT 34.7 % (37.0-47.0); IMMATURE GRANULOCYTES 1.1 % (0.0-1.0); MEAN CELL VOLUME 90.8 fL CALC (80.0-100.0); MEAN CORPUSCULAR HGB 28.8 pG CALC (26.0-32.0); MEAN CORPUSCULAR HGB CONC 31.7 g/L CALC (32.0-36.0); NEUT# 6.04 thou/uL (2.00-7.15); RED BLOOD COUNT 3.82 mill/uL (4.20-5.60); RED CELL DISTRI WIDTH 17.2 % (11.5-15.5)
[2017-11-05 18:41] LABS: INTERNATIONAL NORMALIZED RATIO 3.2 RATIO (0.7-1.3); PROTHROMBIN TIME 36.8 SECONDS (9.0-12.5)
[2017-11-05 18:42] LABS: ALBUMIN 3.7 g/dL (3.2-5.0); ALKALINE PHOSPHATASE 108 u/l (38-126); ANION GAP 13 (6-22 (CALC)); BILIRUBIN, TOTAL 0.6 mg/dL (0.0-1.4); BUN 18 mg/dL (8-23); BUN/CREATININE RATIO 21 (12-20 (CALC)); CALCIUM 8.7 mg/dL (8.4-10.2); CARBON DIOXIDE 35 mmol/l (22-30); CHLORIDE 96 mmol/l (95-108); CREATININE 0.8 mg/dL (0.5-1.0); GFR > 60 ML/MIN (>=60 (CALC)); GFR FOR AFR.AMER. > 60 ML/MIN (>=60 (CALC)); GLUCOSE 118 mg/dL (82-115); POTASSIUM 3.7 mmol/l (3.5-5.1); SGOT/AST 26 u/l (9-36); SGPT/ALT 36 u/l (11-66); SODIUM 140 mmol/l (137-146); TOTAL PROTEIN 6.8 g/dL (6.3-8.2)
[2017-11-05] MEDS ORDERED: WARFARIN3 MG PO (19:24)
[2017-11-05 21:00] VITALS: BP 132/54
[2017-11-05 21:15] VITALS: BP 125/48
[2017-11-05 21:30] VITALS: BP 100/61
[2017-11-05 21:45] VITALS: BP 105/57
[2017-11-05 22:00] VITALS: BP 104/48
[2017-11-05 23:00] VITALS: BP 101/56
[2017-11-06] VITALS (11 sets, daily range): BP systolic 98–117; BP diastolic 45–54
[2017-11-06 05:34] LABS: HEMATOCRIT 30.9 % (37.0-47.0); HEMOGLOBIN 9.6 g/dl (12.0-16.0); IMMATURE GRANULOCYTES 0.8 % (0.0-1.0); INTERNATIONAL NORMALIZED RATIO 2.9 RATIO (0.7-1.3); MEAN CELL VOLUME 90.6 fL CALC (80.0-100.0); MEAN CORPUSCULAR HGB 28.2 pG CALC (26.0-32.0); MEAN CORPUSCULAR HGB CONC 31.1 g/L CALC (32.0-36.0); NEUT# 4.36 thou/uL (2.00-7.15); RED BLOOD COUNT 3.41 mill/uL (4.20-5.60); RED CELL DISTRI WIDTH 17.1 % (11.5-15.5)
[2017-11-06 05:37] LABS: ANION GAP 12 (6-22 (CALC)); BUN 14 mg/dL (8-23); BUN/CREATININE RATIO 20 (12-20 (CALC)); CARBON DIOXIDE 33 mmol/l (22-30); CHLORIDE 100 mmol/l (95-108); CREATININE 0.7 mg/dL (0.5-1.0); GFR > 60 ML/MIN (>=60 (CALC)); GFR FOR AFR.AMER. > 60 ML/MIN (>=60 (CALC)); GLUCOSE 131 mg/dL (82-115); SODIUM 142 mmol/l (137-146)
== END 2017-11-06 13:10 | disposition home health service (06) ==
LOC: ED 17:46 → ED-I 19:07 → ED 19:19 → MS2 19:20 → ICU 19:20 → MS2 19:25 → ICU 19:25
PROVIDERS: Emergency Medicine; ADMIT Internal Medicine; ATTEND Internal Medicine
PROC: 0T9B70Z Drainage of Bladder with Drainage Device, Via Natural or Artificial Opening (ICD-10-PCS; 2017-11-05)
PROC: 5A09357 Assistance with Respiratory Ventilation, Less than 24 Consecutive Hours, Continuous Positive Airway Pressure (ICD-10-PCS; 2017-11-05)
PROC: 3E0234Z Introduction of Serum, Toxoid and Vaccine into Muscle, Percutaneous Approach (ICD-10-PCS; principal; 2017-11-06)
DX: I50.33 Acute on chronic diastolic (congestive) heart failure (principal); E11.22 Type 2 diabetes mellitus with diabetic chronic kidney disease; N18.9 Chronic kidney disease, unspecified; J44.9 Chronic obstructive pulmonary disease, unspecified; G47.30 Sleep apnea, unspecified; J96.10 Chronic respiratory failure, unspecified whether with hypoxia or hypercapnia; M54.5 Low back pain; G89.29 Other chronic pain; I48.91 Unspecified atrial fibrillation; E66.9 Obesity, unspecified; Z79.01 Long term (current) use of anticoagulants; Z91.14 Patient's other noncompliance with medication regimen; Z99.81 Dependence on supplemental oxygen; Z79.4 Long term (current) use of insulin; Z23 Encounter for immunization

== ENCOUNTER 2017-11-08 13:47 | Emergency (ER) | payer MEDICARE, BC ==
[~2017-11-08] VITALS: Ht 157.5 cm; Wt 140.0 kg
[2017-11-08 14:53] LABS: HEMATOCRIT 33.9 % (37.0-47.0); HEMOGLOBIN 10.7 g/dl (12.0-16.0); IMMATURE GRANULOCYTES 1.7 % (0.0-1.0); MEAN CELL VOLUME 90.9 fL CALC (80.0-100.0); MEAN CORPUSCULAR HGB 28.7 pG CALC (26.0-32.0); MEAN CORPUSCULAR HGB CONC 31.6 g/L CALC (32.0-36.0); NEUT# 4.98 thou/uL (2.00-7.15); RED BLOOD COUNT 3.73 mill/uL (4.20-5.60); RED CELL DISTRI WIDTH 17.2 % (11.5-15.5)
[2017-11-08 15:11] LABS: ALBUMIN 3.8 g/dL (3.2-5.0); ALKALINE PHOSPHATASE 93 u/l (38-126); ANION GAP 12 (6-22 (CALC)); BILIRUBIN, TOTAL 0.7 mg/dL (0.0-1.4); BUN 17 mg/dL (8-23); BUN/CREATININE RATIO 23 (12-20 (CALC)); CALCIUM 9.1 mg/dL (8.4-10.2); CARBON DIOXIDE 36 mmol/l (22-30); CHLORIDE 98 mmol/l (95-108); CREATININE 0.8 mg/dL (0.5-1.0); GFR > 60 ML/MIN (>=60 (CALC)); GFR FOR AFR.AMER. > 60 ML/MIN (>=60 (CALC)); GLUCOSE 185 mg/dL (82-115); POTASSIUM 4.4 mmol/l (3.5-5.1); SGOT/AST 48 u/l (9-36); SGPT/ALT 17 u/l (11-66); SODIUM 141 mmol/l (137-146); TOTAL PROTEIN 7.1 g/dL (6.3-8.2)
[2017-11-08 15:23] LABS: MYOGLOBIN 37 ng/mL (0 - 62)
[2017-11-08] MEDS ORDERED: LASIX 40 MG TAB40 MG PO (16:00)
[2017-11-08 16:12] VITALS: BP 138/56
== END 2017-11-08 16:55 | disposition home or self-care (01) ==
LOC: ED 13:47 → ED-I 15:20 → ED 16:55
PROVIDERS: Emergency Medicine
PROC: 0T9B70Z Drainage of Bladder with Drainage Device, Via Natural or Artificial Opening (ICD-10-PCS; principal; 2017-11-08)
DX: I50.9 Heart failure, unspecified (principal)

== ENCOUNTER 2017-11-12 10:46 | Inpatient (IN) | payer MEDICARE, BC ==
[2017-11-12] VITALS (10 sets, daily range): BP systolic 91–121; BP diastolic 45–77
[~2017-11-12] VITALS: Ht 157.5 cm; Wt 112.7 kg
[2017-11-12] MEDS ORDERED: SINGULAIR10 MG PO (11:08)
[2017-11-12 11:17] LABS: HEMATOCRIT 37.7 % (37.0-47.0); HEMOGLOBIN 11.5 g/dl (12.0-16.0); IMMATURE GRANULOCYTES 1.3 % (0.0-1.0); MEAN CELL VOLUME 92.9 fL CALC (80.0-100.0); MEAN CORPUSCULAR HGB 28.3 pG CALC (26.0-32.0); MEAN CORPUSCULAR HGB CONC 30.5 g/L CALC (32.0-36.0); NEUT# 9.14 thou/uL (2.00-7.15); RED BLOOD COUNT 4.06 mill/uL (4.20-5.60); RED CELL DISTRI WIDTH 17.2 % (11.5-15.5)
[2017-11-12 11:23] LABS: INTERNATIONAL NORMALIZED RATIO 1.6 RATIO (0.7-1.3); PROTHROMBIN TIME 18.5 SECONDS (9.0-12.5)
[2017-11-12 11:24] LABS: ALBUMIN 3.9 g/dL (3.2-5.0); ALKALINE PHOSPHATASE 106 u/l (38-126); BILIRUBIN, TOTAL 0.5 mg/dL (0.0-1.4); BUN 22 mg/dL (8-23); BUN/CREATININE RATIO 26 (12-20 (CALC)); CALCIUM 9.4 mg/dL (8.4-10.2); CHLORIDE 96 mmol/l (95-108); CREATININE 0.9 mg/dL (0.5-1.0); GFR 60 ML/MIN (>=60 (CALC)); GFR FOR AFR.AMER. > 60 ML/MIN (>=60 (CALC)); GLUCOSE 149 mg/dL (82-115); POTASSIUM 3.7 mmol/l (3.5-5.1); SGOT/AST 34 u/l (9-36); SGPT/ALT 29 u/l (11-66); SODIUM 144 mmol/l (137-146); TOTAL PROTEIN 7.4 g/dL (6.3-8.2)
[2017-11-12 11:30] LABS: ANION GAP 15 (6-22 (CALC)); CARBON DIOXIDE 37 mmol/l (22-30)
[2017-11-12 11:36] LABS: MYOGLOBIN 34 ng/mL (0 - 62)
[2017-11-12 19:20] LABS: URINE BILIRUBIN - DIPSTICK NEGATIVE (NEGATIVE); URINE BLOOD DIPSTICK SMALL (NEGATIVE); URINE COLOR YELLOW; URINE GLUCOSE - DIPSTICK NEGATIVE (NEGATIVE); URINE KETONE NEGATIVE (NEGATIVE); URINE PROTEIN - DIPSTICK 30 mg/dL (NEG-TRACE)
[2017-11-12 19:22] LABS: URINE CLARITY CLOUDY; URINE LEUK ESTERASE LARGE (NEGATIVE); URINE NITRITE - DIPSTICK POSITIVE (Negative)
[2017-11-12 19:38] LABS: URINE BACTERIA MODERATE hpf; URINE SQUAMOUS EPITHELIAL CELL FEW EPI/hpf (0-FEW); URINE WBC TNTC WBC/hpf (0-5)
[2017-11-13] VITALS (21 sets, daily range): BP systolic 98–127; BP diastolic 47–72
[2017-11-13 07:05] LABS: HEMATOCRIT 34.1 % (37.0-47.0); HEMOGLOBIN 10.5 g/dl (12.0-16.0); IMMATURE GRANULOCYTES 1.6 % (0.0-1.0); MEAN CELL VOLUME 91.4 fL CALC (80.0-100.0); MEAN CORPUSCULAR HGB 28.2 pG CALC (26.0-32.0); MEAN CORPUSCULAR HGB CONC 30.8 g/L CALC (32.0-36.0); NEUT# 8.45 thou/uL (2.00-7.15); RED BLOOD COUNT 3.73 mill/uL (4.20-5.60); RED CELL DISTRI WIDTH 17.2 % (11.5-15.5)
[2017-11-13 07:20] LABS: ANION GAP 18 (6-22 (CALC)); BUN 32 mg/dL (8-23); BUN/CREATININE RATIO 37 (12-20 (CALC)); CALCIUM 9.5 mg/dL (8.4-10.2); CARBON DIOXIDE 33 mmol/l (22-30); CHLORIDE 97 mmol/l (95-108); CREATININE 0.9 mg/dL (0.5-1.0); GFR 60 ML/MIN (>=60 (CALC)); GFR FOR AFR.AMER. > 60 ML/MIN (>=60 (CALC)); GLUCOSE 233 mg/dL (82-115); POTASSIUM 3.7 mmol/l (3.5-5.1); SODIUM 144 mmol/l (137-146)
[2017-11-13 07:30] LABS: INTERNATIONAL NORMALIZED RATIO 1.9 RATIO (0.7-1.3)
[2017-11-14] VITALS (20 sets, daily range): BP systolic 89–141; BP diastolic 46–80
[2017-11-14 05:52] LABS: HEMATOCRIT 32.1 % (37.0-47.0); HEMOGLOBIN 10.1 g/dl (12.0-16.0); IMMATURE GRANULOCYTES 1.1 % (0.0-1.0); MEAN CELL VOLUME 90.7 fL CALC (80.0-100.0); MEAN CORPUSCULAR HGB 28.5 pG CALC (26.0-32.0); MEAN CORPUSCULAR HGB CONC 31.5 g/L CALC (32.0-36.0); NEUT# 9.73 thou/uL (2.00-7.15); RED BLOOD COUNT 3.54 mill/uL (4.20-5.60); RED CELL DISTRI WIDTH 17.2 % (11.5-15.5)
[2017-11-14 06:13] LABS: ANION GAP 13 (6-22 (CALC)); BUN 48 mg/dL (8-23); BUN/CREATININE RATIO 54 (12-20 (CALC)); CALCIUM 9.8 mg/dL (8.4-10.2); CARBON DIOXIDE 37 mmol/l (22-30); CHLORIDE 98 mmol/l (95-108); CREATININE 0.9 mg/dL (0.5-1.0); GFR 60 ML/MIN (>=60 (CALC)); GFR FOR AFR.AMER. > 60 ML/MIN (>=60 (CALC)); GLUCOSE 173 mg/dL (82-115); POTASSIUM 4.1 mmol/l (3.5-5.1); SODIUM 144 mmol/l (137-146)
== END 2017-11-14 20:20 | DRG 189 ==
LOC: ED 10:46 → ED-I 12:09 → ED 12:21 → ICU 12:22
PROVIDERS: Emergency Medicine; ADMIT Internal Medicine; ATTEND Internal Medicine
PROC: 5A09457 Assistance with Respiratory Ventilation, 24-96 Consecutive Hours, Continuous Positive Airway Pressure (ICD-10-PCS; principal; 2017-11-12)
DX: J96.22 Acute and chronic respiratory failure with hypercapnia (principal); I50.33 Acute on chronic diastolic (congestive) heart failure; E11.22 Type 2 diabetes mellitus with diabetic chronic kidney disease; E66.01 Morbid (severe) obesity due to excess calories; I48.91 Unspecified atrial fibrillation; J44.1 Chronic obstructive pulmonary disease with (acute) exacerbation; N39.0 Urinary tract infection, site not specified; J96.21 Acute and chronic respiratory failure with hypoxia; E11.9 Type 2 diabetes mellitus without complications; E03.9 Hypothyroidism, unspecified; F41.9 Anxiety disorder, unspecified; N18.9 Chronic kidney disease, unspecified; G47.33 Obstructive sleep apnea (adult) (pediatric); Z79.01 Long term (current) use of anticoagulants; Z79.4 Long term (current) use of insulin; Z99.81 Dependence on supplemental oxygen

== ENCOUNTER 2018-01-09 14:58 | Inpatient (IN) | payer MEDICARE, BC ==
[~2018-01-09] VITALS: Ht 157.5 cm; Wt 115.6 kg
--- NOTE | 2018-01-09 15:00 | NUR ---
PT TO ROOM 12 VIA EMS STRETCHER TRANSFERED BY STAFF.
[2018-01-09 15:29] LABS: HEMATOCRIT 33.2 % (37.0-47.0); HEMOGLOBIN 10.4 g/dl (12.0-16.0); MEAN CELL VOLUME 90.5 fL CALC (80.0-100.0); MEAN CORPUSCULAR HGB 28.3 pG CALC (26.0-32.0); MEAN CORPUSCULAR HGB CONC 31.3 g/L CALC (32.0-36.0); NEUT# 6.25 thou/uL (2.00-7.15); RED BLOOD COUNT 3.67 mill/uL (4.20-5.60); RED CELL DISTRI WIDTH 18.9 % (11.5-15.5)
[2018-01-09 15:37] LABS: ALBUMIN 3.2 g/dL (3.2-5.0); BILIRUBIN, TOTAL 0.2 mg/dL (0.0-1.4); TOTAL PROTEIN 5.8 g/dL (6.3-8.2)
[2018-01-09 15:39] LABS: CREATININE 1.4 mg/dL (0.5-1.0)
--- NOTE | 2018-01-09 16:07 | NUR ---
PT RESTING ON MD REYES IN ROOM WITH PT. PT STATES THAT BREATHING HAS IMPROVED WITH O2, DENIES ANY NEEDS AT THIS TIME.
[2018-01-09 16:30] LABS: MYOGLOBIN 29 ng/mL (0 - 62)
--- NOTE | 2018-01-09 16:40 | NUR ---
PT STATES THAT SHE DOES NOT HAVE HER MED LIST AND IS UNSURE OFF ALL WHAT MEDICATIONS SHE TAKES.
--- NOTE | 2018-01-09 18:12 | NUR ---
SBAR PRINTED TO FLOOR
--- NOTE | 2018-01-09 18:17 | NUR ---
CALLED [facility] FOR REPORT, ACCEPTING NURSE NOT ON THE FLOOR- WILL RETURN CALL
--- NOTE | 2018-01-09 18:26 | NUR ---
REPORT CALLED TO BELKIS RAHMAN LPN ACCEPTED REPORT.
--- NOTE | 2018-01-09 18:48 | NUR ---
ADMITTING UNIT CHANGED TO ICU REPORT CALLED TO AMIE MARRUFO- ACCEPTED PT
[2018-01-09 19:00] VITALS: BP 114/54
--- NOTE | 2018-01-09 19:15 | NUR ---
PT TO ICU BED 3. PT TRANSFERRED TO BED MAXIMUM ASSIST
--- NOTE | 2018-01-09 19:15 | NUR ---
D/C instructions given with verbalization of understanding. Pt. discharged home in stable condition. Pt transferred to ICU via stretcher on continuous improvement coordinator with RN
--- NOTE | 2018-01-09 19:30 | NUR ---
PT RESTING IN BED. PT ORIENTED TO ROOM AND CALL SYSTE. PT IS ALERT AND ORIENTED X3. PERRLA. LUNGS ARE DIMINISHED THROUGHOUT. RESP ARE EVEN AND UNLABORED. NO DISTRESS NOTED. ON O2 2L NC. HR REGULAR. PULSES PALPABLE THROUGHOUT BILAT 4+ EDEMA TO LOWER EXTREMITIES. BS ACTIVE. PT REPORTS A NORMAL BM EARLIER TODAY AT HOME. #20 RAC. NS @125CC/HR INFUSING. NO REDNESS OR EDEMA NOTED. WILL CONTINUE TO MONITOR
[2018-01-09 20:00] VITALS: BP 90/50
--- NOTE | 2018-01-09 20:15 | NUR ---
PT PLACED ON BIPAP.
[2018-01-09 21:00] VITALS: BP 87/63
--- NOTE | 2018-01-09 21:00 | NUR ---
ATTEMPTED TO OBTAIN LLIST OF HOME MEDS. PT STATES THAT SHE DOES NOT KNOW ALL OF HER MEDS AND WILL HAVE SOMEONE BRING THE LIST TOMORROW.
[2018-01-09 22:00] VITALS: BP 85/49
--- NOTE | 2018-01-09 22:30 | NUR ---
RT IN ROOM PT REQUESTED BIPAP BE REMOVED DUE TO "PANIC ATTACK". RT REMOVED BIPAP. WHEN PT WAS READY PT WAS PLACED BACK ON BIPAP.
--- NOTE | 2018-01-09 22:45 | NUR ---
MOROCHO INSERTED PER MD ORDERS
[2018-01-09 23:00] VITALS: BP 74/46
--- NOTE | 2018-01-09 23:00 | NUR ---
OBTAINED BP WITH MANUAL CUFF AND DOPPLER. SYSTOLIC IS 102. AUTO BP CUFF ON PT LEFT FOREARM DUE TO SIZE OF PT ARM
[2018-01-09 23:04] LABS: URINE BILIRUBIN - DIPSTICK NEGATIVE (NEGATIVE); URINE BLOOD DIPSTICK NEGATIVE (NEGATIVE); URINE COLOR YELLOW; URINE GLUCOSE - DIPSTICK NEGATIVE (NEGATIVE); URINE KETONE NEGATIVE (NEGATIVE); URINE LEUK ESTERASE NEGATIVE (NEGATIVE); URINE NITRITE - DIPSTICK NEGATIVE (Negative); URINE PH 5.5 (4.5-8.0); URINE PROTEIN - DIPSTICK NEGATIVE (NEG-TRACE); URINE UROBILINOGEN - DIPSTICK 0.2 E.U./dL (0.2)
[2018-01-10] VITALS (11 sets, daily range): BP systolic 86–123; BP diastolic 41–79
--- NOTE | 2018-01-10 | NUR ---
PT IN BED WATCHING TV. PT ON BIPAP. RESP ARE EVEN AND UNLABORED. NO DISTRESS NOTED. WILL CONTINUE TO MONITOR
[2018-01-10 00:41] LABS: URINE CLARITY SL CLOUDY
--- NOTE | 2018-01-10 02:00 | NUR ---
PT RESTING IN BED BIPAP IN PLACE. RESP ARE EVEN AND UNLABORED. NO DISTRESS NOTED. WILL CONTINUE TO MONITOR
--- NOTE | 2018-01-10 04:00 | NUR ---
LAB INTO DRAW AM LAB. UNABLE TO OBTAIN SPECIMEN.
--- NOTE | 2018-01-10 04:13 | NUR ---
PT RESTING IN BED BIPAP IN PLACE. RESP ARE EVEN AND UNLABORED. NO DISTRESS NOTED. WILL CONTINUE TO MONITOR
--- NOTE | 2018-01-10 05:30 | NUR ---
PT REQUESTED FOR BIPAP TO BE REMOVED. RT REMOVED BIPAP AND PLACED PT ON O2 NC
--- NOTE | 2018-01-10 05:45 | NUR ---
PT STATES "I AM HAVING A PANIC ATTACK AND CAN'T BREATHE" ENCOURAGED PT TO TAKE SOME SLOW DEEP BREATHS. PT CONTINUES TO HYPOERVENTILATE. PLACED PT BACK ON BIPAP.
--- NOTE | 2018-01-10 07:25 | NUR ---
PT RESTING IN BED, AM ASSESSMENT COMPLETED SEE INTERVENTIONS, IVF INFUSING AT PRESCRIBED RATE, LUNGS DIMINSHED, BIPAP REMOVED AND NC PLACED AT 2L VIA NC, PT TOLOERATES WELL, PT ENCOURAGED REPEATEDLY TO BE MORE INDEPENDENT WITH MOVEMENT AND SELF CARE, PT STATES SHE WAS IN HOSPITAL [place] THEN REHAB AND WAS ONLY HOME FOR A WEEK THEN CAME BACK IN HERE BECAUSE SHE COULDN'T "BREATH" AM ASSESSMENT COMPLETE SEE INTERVNETIONS, OFFERED AM MEAL, STATES "I'M NOT HUNGRY RIGHT NOW MAYBE LATERA', COMFORT MEASURES PROVIDED WILL CONTINUE TO MONITOR. CALL ELIZALDE WITHIN REACH
[2018-01-10 07:36] LABS: HEMATOCRIT 33.5 % (37.0-47.0); HEMOGLOBIN 10.3 g/dl (12.0-16.0); MEAN CORPUSCULAR HGB CONC 30.7 g/L CALC (32.0-36.0); RED BLOOD COUNT 3.68 mill/uL (4.20-5.60); RED CELL DISTRI WIDTH 18.9 % (11.5-15.5)
[2018-01-10 07:58] LABS: ANION GAP 14 (6-22 (CALC)); BUN 14 mg/dL (8-23); BUN/CREATININE RATIO 14 (12-20 (CALC)); CARBON DIOXIDE 28 mmol/l (22-30); CHLORIDE 104 mmol/l (95-108); GFR 53 ML/MIN (>=60 (CALC)); GFR FOR AFR.AMER. > 60 ML/MIN (>=60 (CALC)); POTASSIUM 3.7 mmol/l (3.5-5.1); SODIUM 142 mmol/l (137-146)
--- NOTE | 2018-01-10 08:15 | NUR ---
PT ASSISTED TO SIT UP ON EDGE OF BED, CALL ELIZALDE WITHIN REACH, MEAL ASSIST PROVIDED AND REHEAT OFFERED AND DECLINED, WILL CONTINUE TO MONITOR.
--- NOTE | 2018-01-10 09:30 | NUR ---
INTO SEE PATIENT, PLAN OF CARE DISCUSSED, CALL ELIZALDE WITHIN REACH
--- NOTE | 2018-01-10 11:18 | NUR ---
PT RESTING, REMAINS SITTING UP ON EDGE BED, IVF AT KVO, CALL ELIZALDE WITHIN REACH
--- NOTE | 2018-01-10 12:30 | NUR ---
APPETITE GOOD, ATE 100% OF AFTERNOON MEAL. COMFORT MEASURES PROVIDED, CALL ELIZALDE WITHIN REACH, SPOKE WITH PATIENT AT LENGTH REGARDING INCREASING INDEPENDENCE WITH PERSONAL CARE PT VERBALIZES UNDERSTANDING, WILL CONTINUE TO MONITOR
--- NOTE | 2018-01-10 13:53 | NUR ---
PT CALLED REQUESTING XANAX, ANXIETY RELATED PT REQUIRES EMOTIONAL SUPPORT AND PROVIDED, CALL ELIZALDE WITHIN REACH
--- NOTE | 2018-01-10 14:12 | NUR ---
SHEKHAR DE LOS SANTOS AWARE OF ANXIETY ISSUES AND MEDICATION REQUEST BY PT, WILL ORDER PER SHEKHAR
--- NOTE | 2018-01-10 15:15 | NUR ---
PT RESTING REMAINS ANXIOUS BUT IMPROVED, PT STATES SHE IS A DNR AT HOME, TRUCK DRIVER FLATBED TO BRING IN PAPERWORK FROM HOME
--- NOTE | 2018-01-10 15:35 | NUR ---
ORDER REC'D FOR BILAT LE UNNA BOOT EVAL, ORDERED BY KIKO HASSAN M.D. SPOKE WITH HER NURSE, CHEIKH, AND CONFIRMED THAT PHYSICIAN WANTS LOW COMPRESSION UNNA BOOTS, WHICH WILL BE APPLIED BY NS. THIS IS AN MIS ERROR PHYSICAL THERAPY NO LONGER PROVIDES WOUND CARE. PATIENT WILL MOST LIKELY NEED A P.T. EVAL, BUT IS CURRENTLY HAVING TESTING TO R/O DVT. WILL F/U IN THE AM AND CONFIRM PHYSICIAN'S ORDER.
--- NOTE | 2018-01-10 16:30 | NUR ---
PT RESTING IN BED, GIACOMO BROUGHT IN MEDICATION LIST WILL UPDATE, REMAINS IMPROVED BUT STILL ANXIOUS, COMFORT MEASURES PROVIDED, WILL CONTINUE TO MONITOR
--- NOTE | 2018-01-10 17:54 | NUR ---
GIACOMO DUENAS BACK AT BEDSIDE, PROVIDED DNR REQUESTED, PLACED ON CHART AND NOTIFIED
[2018-01-10] MEDS ORDERED: MELATONIN3 M1 PO (18:10)
[2018-01-10] MEDS ORDERED: B-121000 MC5 SL (18:12)
[2018-01-10] MEDS ORDERED: METOLAZONE5 MG PO (18:14)
[2018-01-10] MEDS ORDERED: MILK OF MAG30 ML/UDC PO (18:15)
[2018-01-10] MEDS ORDERED: METOPROL TAR25 MG PO (18:15)
[2018-01-10] MEDS ORDERED: MONTELUKAST SOD10 MG PO (18:16)
[2018-01-10] MEDS ORDERED: MULTIVITAMI9 PO (18:17)
[2018-01-10] MEDS ORDERED: NOVOLOG100 UNIT/M SC (18:20)
[2018-01-10] MEDS ORDERED: K-TAB20 MEQ PO (18:21)
[2018-01-10] MEDS ORDERED: SENNA-TABS8.6 MG PO (18:21)
[2018-01-10] MEDS ORDERED: TRAMADOL HYDROC50 MG PO (18:22)
[2018-01-10] MEDS ORDERED: XANAX0.5 MG PO (18:23)
[2018-01-10] MEDS ORDERED: DOCUSATE CAL240 MG PO (18:24)
[2018-01-10] MEDS ORDERED: CALCIUM 600600 M1 PO (18:24)
[2018-01-10] MEDS ORDERED: COUMADIN4 MG PO (18:25)
[2018-01-10] MEDS ORDERED: DILTIAZEM HCL240 MG PO (18:25)
[2018-01-10] MEDS ORDERED: DUONEB IN (18:26)
[2018-01-10] MEDS ORDERED: IMIPRAM HCL50 MG PO (18:28)
[2018-01-10] MEDS ORDERED: LASIX 80 MG TAB80 M1 PO (18:29)
[2018-01-10] MEDS ORDERED: LEVEMIR100 UNIT/M SC (18:29)
[2018-01-10] MEDS ORDERED: LEVOTHYROXIN175 MC1 PO (18:30)
[2018-01-10] MEDS ORDERED: MAG OXIDE400 MG PO (18:30)
--- NOTE | 2018-01-10 19:15 | NUR ---
PT SITTING UP ON SIDE OF BED WATCHING TV. PT IS ALERT AND ORIENTED X3. PERRLA. RESP ARE EVEN AND UNLABORED. NO DISTRESS NOTED. LUNGS ARE CLEAR AND DIMINISHED THROUGHOUT. PT STATES " I FEEL LIKE IM HAVING ANOTHER PANIC ATTACK" ENCOURAGED SLOW DEEP BREATHS. PT "PANIC ATTACK" RESOLVED. HR IRREGULAR. PULSES PALPABLE THROUGHOUT. 4+ EDEMA TO BILAT LOWER EXT. BILAT EXT RED WITH WEEPING WOUNDS NOTED. (PICS ON CHART). BS ACTIVE. PT DENIES BM TODAY. HOME CPAP AT [place]. PT REMAINS 91-96% ON O2 2L NC. #20 RAC WITH NS @ KVO INFUSING. NO REDNESS OR EDEMA NOTED. WILL CONTINUE TO MONITOR
--- NOTE | 2018-01-10 20:00 | NUR ---
PT STATES "I FEEL LIKE I AM HAVING ANOTHER PANIC ATTACK". PT REQUESTS XANAX. EXPL;AINED TO PT THAT MEDICATION WAS ORDERED Q12H. NOTIFIED DR VARNER. NOW DOSE ORDERED AND MEDICATIONS CHANGED TO Q8H. EXPLAINED TO PT. PT VERBALIZED UNDERSTANDING.
--- NOTE | 2018-01-10 20:45 | NUR ---
PT REMAINS SITTING UP ON SIDE OF BED. XANAX PO GIVEN FOR ANXIETY. WILL CONTINUE TO MONITOR.
--- NOTE | 2018-01-10 21:20 | NUR ---
ASSISTED PT BACK TO BED. PT PLACED ON HOME CPAP. WILL CONTINUE TO MONITOR
--- NOTE | 2018-01-10 21:48 | NUR ---
HOME MEDS ORDERED AND FAXED TO PHARMACY PER .
--- NOTE | 2018-01-10 23:00 | NUR ---
PT RESTING IN BED WITH EYES CLOSED. CPAP IN PLACE. WILL CONTINUE TO MONITOR
--- NOTE | 2018-01-11 01:02 | NUR ---
PT RESTING IN BED WITH EYES CLOSED. RESP ARE EVEN AND UNLABORED. NO DISTRESS NOTED. CPAP IN PLACE. WILL CONTINUE TO MONITOR
[2018-01-11 03:00] VITALS: BP 108/54
--- NOTE | 2018-01-11 03:11 | NUR ---
PT RESTING IN BED WITH EYES CLOSED. CPAP IN PLACE. RESP ARE EVEN AND UNLABORED. NO DISTRESS NOTED. WILL CONTINUE TO MONITOR
--- NOTE | 2018-01-11 04:00 | NUR ---
PT RESTING IN BED WITH EYES CLOSED. CPAP IN PLACE. RESP ARE EVEN AND UNLABORED. NO DISTRESS NOTED. WILL CONTINUE TO MONITOR
--- NOTE | 2018-01-11 05:45 | NUR ---
#22 STARTED X2 ATTEMPTS IN LAC. PT THEN STATES " IM HAVING ANOTHER PANIC ATTACK" ENCOURAGED PT TO TAKE SLOW DEEP BREATHS. REMOVED CPAP PT REQUESTED. PLACED ON O2 2L NC. PT MAINTAINED O2 SAT 90% AND ABOVE. PT BEGAN HYPERVENTILATING. ENCOURAGED PT TO SLOW BREATHING. PT DEMANDED TO SIT UP ON SIDE OF BED. INSTRUCTED PT THAT THE MD THAT SAW HER YESTERDAY FROM DR BUTCHER OFFICE DID NOT WANT HER LEGS DANGLING THIS WOULD INCREASE SWELLING. PT DEMANDED TO HAVE FEET TOUCH FLOOR NAD THEN DANGLE OFF OF BED. XANAX PO WAS GIVEN ALONG WITH OTHER AM MEDS. WILL CONTINUE TO MONITOR
--- NOTE | 2018-01-11 07:20 | NUR ---
PT REMAINS SITTING UP ON EDGE OF BED, AM ASSESSMENT COMPLETED SEE INTERVENTIONS, IVF INFUSING AT PRESCRIBED RATE, LUNGS DIMINSHED, HOME CPAP REMOVED EARLIER, CURRENTLY ON NC AT 2L VIA NC, PT TOLERATES WELL, PT ENCOURAGED REPEATEDLY TO BE MORE INDEPENDENT WITH MOVEMENT AND SELF CARE, ASSESSMENT COMPLETE SEE INTERVNETIONS, SKIN WARM AND DRY, BILATERAL LE REDDENED, DECLINED UNNA BOOTS YESTERDAY RELATED TO "I AM ALWAYS HOT AND THAT WOULD ONLY MAKE MY LEGS EVEN HOTTER", COMFORT MEASURES PROVIDED WILL CONTINUE TO MONITOR. CALL ELIZALDE WITHIN REACH, PT AWARE OF PLANNED ULTRASOUND TODAY ON BLE.
[2018-01-11 07:34] LABS: HEMATOCRIT 35.8 % (37.0-47.0); HEMOGLOBIN 11.2 g/dl (12.0-16.0); MEAN CELL VOLUME 90.9 fL CALC (80.0-100.0); MEAN CORPUSCULAR HGB 28.4 pG CALC (26.0-32.0); MEAN CORPUSCULAR HGB CONC 31.3 g/L CALC (32.0-36.0); RED BLOOD COUNT 3.94 mill/uL (4.20-5.60); RED CELL DISTRI WIDTH 18.6 % (11.5-15.5)
--- NOTE | 2018-01-11 07:40 | NUR ---
SET UP ASSIST PROVIDED FRO AM MEAL, REMAINS SITTING UP ON EDGE OF BED
[2018-01-11 07:53] LABS: ANION GAP 15 (6-22 (CALC)); BUN 13 mg/dL (8-23); BUN/CREATININE RATIO 14 (12-20 (CALC)); CARBON DIOXIDE 29 mmol/l (22-30); CHLORIDE 101 mmol/l (95-108); CREATININE 0.9 mg/dL (0.5-1.0); GFR 60 ML/MIN (>=60 (CALC)); GFR FOR AFR.AMER. > 60 ML/MIN (>=60 (CALC)); POTASSIUM 3.5 mmol/l (3.5-5.1); SODIUM 142 mmol/l (137-146)
[2018-01-11 08:00] VITALS: BP 100/52
[2018-01-11 08:07] LABS: MAGNESIUM 1.6 mg/dL (1.6-2.3)
[2018-01-11 08:10] LABS: INTERNATIONAL NORMALIZED RATIO 2.3 RATIO (0.7-1.3); PROTHROMBIN TIME 26.1 SECONDS (9.0-12.5)
--- NOTE | 2018-01-11 09:13 | NUR ---
AT BEDSIDE, SPEAKING WITH PATIENT.
--- NOTE | 2018-01-11 10:30 | NUR ---
PT RESTING IN BED, OFFERS NO NEW COMPLAINTS, AWARE OF PLANNED ULTRASOUND TODAY
--- NOTE | 2018-01-11 11:08 | NUR ---
STOOD OFF BED AND TRASNFERRED TO STRETCHER WITH MAX ASSIST, TOLERATED IWTH SOME DYSPNEA NOTED BUT PT RESTS AND RECOVERS, TO ULTRASOUND VIA STRETCHER
--- NOTE | 2018-01-11 12:10 | NUR ---
PT BACK FROM RADIOLOGY STOOD OFF STRETCHER AND TRASNFERRED TO [facility]IR[facility] WITH SAME ASSIST, SITTING UP ON EDGE OF BED, AFTERNOON MEAL, SET UP ASSIST PROVIDED.
--- NOTE | 2018-01-11 12:30 | NUR ---
PT BACK FROM RADIOLOGY STOOD OFF STRETCHER AND TRASNFERRED TO [facility]IR[facility] WITH SAME ASSIST, SITTING UP ON EDGE OF BED, AFTERNOON MEAL, SET UP ASSIST PROVIDED.
--- NOTE | 2018-01-11 13:48 | NUR ---
PT RESTING TOLERATE MEAL WELL, OFFERS NO NEW COMPLAINTS, ASSISTED BACK TO BED WITH LEG LIFT REQUIRED, CALL ELIZALDE WITHIN [facility], REMAINS ON NC AT 3L, WILL CONTINUE TO MONITOR.
[2018-01-11 14:00] VITALS: BP 123/55
--- NOTE | 2018-01-11 14:28 | NUR ---
MEDICATED FOR COMPLAINTS OF ANXIETY, TOELRATED WELL, CALL ELIZALDE WITHINR EACH, CASE MGMT IN TO SPEAK WITH PATIENT WELL.
--- NOTE | 2018-01-11 15:39 | NUR ---
PT RESTING I NBED WITH EYES CLOSED, ANXIETY RESOLVED AT THIS TIME, CONTINUES ON NC, CALL ELIZALDE WITHIN REACH, WILL CONTINUE TO MONITOR.
--- NOTE | 2018-01-11 16:32 | NUR ---
ATTEMPTED TO SEE PATIENT AT NOON AND SHE WAS OFF THE FLOOR HAVING US TO R/O DVT. WILL F/U TOMORROW.
--- NOTE | 2018-01-11 16:35 | NUR ---
pt assist to sitting up on edge of bed, comfort measures provided, call quintero within reach
--- NOTE | 2018-01-11 16:50 | NUR ---
visitor at bedside, call quintero within reach....
--- NOTE | 2018-01-11 17:28 | NUR ---
pt assisted out of bed, to sit in recliner, accu check completed and coverage given as ordered, IV ABT infusing as prescribed, call quintero within reach.
--- NOTE | 2018-01-11 18:06 | NUR ---
dietary at bedside discussing upcoming meals, pt remains sitting up in recliner, call quintero within reach.
--- NOTE | 2018-01-11 19:00 | NUR ---
REPORT FROM NIRU SALAMANCA. ASSUMED PT. CARE.
[2018-01-11 20:10] VITALS: BP 147/72
--- NOTE | 2018-01-11 21:00 | NUR ---
PT. ASSISTED BACK TO BED AT THIS TIME. AMBULATORY WITH MINIMUM ASSIST FROM BEDSIDE CHAIR TO BED. PT. FOUND AWAKE, ALERT, ORIENTED X 3. MILD DYSPNEA NOTED. SPO2 IS 94% ON 2L VIA NC. REMAINS AFEBRILE. LUNG SOUNDS CLEAR TO UPPERS, DIMINISHED TO BASES BILAT, LIKELY DUE TO BODY HABITUS. HR IRREGULAR. BILAT LOWER EXT EDEMA NOTED 4+. CELLULITIC IN APPEARANCE TO BILAT LOWER EXT. MOROCHO REMAINS IN PLACE. APPROX 200 CC NOTED TO BAG AT THIS TIME. MEDICATED PER PHYSICIAN ORDERS. DENIES COMPLAINTS OF PAIN OR NEED. PT. REMAINS IN A-FIB WITH RATE IN THE 90'S. BP STABLE. CALL LIGHT WITHIN REACH. WILL CONTINUE TO ASSESS.
[2018-01-12] VITALS (7 sets, daily range): BP systolic 92–145; BP diastolic 44–67
--- NOTE | 2018-01-12 00:15 | NUR ---
PT. REMAINS STABLE ON HER CPAP. NO DISTRESS NOTED. MOROCHO CATHETER DRAINED OF 2000 CC URINE AT THIS TIME. CALL LIGHT REMAINS WITHIN REACH. WILL CONTINUE TO ASSESS.
--- NOTE | 2018-01-12 02:11 | NUR ---
PT. RESTING IN BED WITH EYES CLOSED. HOME CPAP REMAINS IN [place]. PT. A-FIB WITH RATE IN THE 70'S. NO DISTRESS. SPO2 IS 98% ON CPAP AT THIS TIME. CALL LIGHT REMAINS WITHIN REACH. WILL CONTINUE TO ASSESS.
[2018-01-12 05:20] LABS: HEMATOCRIT 32.6 % (37.0-47.0); HEMOGLOBIN 10.1 g/dl (12.0-16.0); MEAN CELL VOLUME 90.1 fL CALC (80.0-100.0); MEAN CORPUSCULAR HGB 27.9 pG CALC (26.0-32.0); RED BLOOD COUNT 3.62 mill/uL (4.20-5.60); RED CELL DISTRI WIDTH 18.2 % (11.5-15.5)
[2018-01-12 05:30] LABS: ANION GAP 12 (6-22 (CALC)); BUN 14 mg/dL (8-23); BUN/CREATININE RATIO 14 (12-20 (CALC)); CARBON DIOXIDE 36 mmol/l (22-30); CHLORIDE 98 mmol/l (95-108); GFR 53 ML/MIN (>=60 (CALC)); GFR FOR AFR.AMER. > 60 ML/MIN (>=60 (CALC)); POTASSIUM 3.4 mmol/l (3.5-5.1); SODIUM 143 mmol/l (137-146)
[2018-01-12 05:32] LABS: INTERNATIONAL NORMALIZED RATIO 2.6 RATIO (0.7-1.3); PROTHROMBIN TIME 29.2 SECONDS (9.0-12.5)
--- NOTE | 2018-01-12 05:40 | NUR ---
REPORT TO TOMAS PALAFOX.
--- NOTE | 2018-01-12 06:05 | NUR ---
PT. TAKEN TO MED/SURG AT THIS TIME. ROOM 261.
--- NOTE | 2018-01-12 06:05 | NUR ---
PT ARRIVED TO FLOOR VIA STRETCHER WITH NIRU BUENROSTRO. PT ORIENTED TO ROOM AND CALL LIGHT SYSTEM. PT DENIES ANY PAIN OR DISCOMFORT. TELE IN PLACE. RESP EVEN AND UNLABORED WITH O2 IN PLACE. VITALS OBTAINED. SAFETY PRECAUTIONS REINFORCED. PT ENCOURAGED TO CALL FOR ASSISTANCE. CALL LIGHT WITHIN REACH.
--- NOTE | 2018-01-12 07:00 | NUR ---
BEDSIDE REPORT RECEIVED BY LEONARDO. PT IS SLEEPING WITH NO S/S OF DISTRESS NOTED. CALL LIGHT IN REACH.
--- NOTE | 2018-01-12 08:00 | NUR ---
PT IS SITTING IN RECLINER. ASSESSMENT DONE AND TELE IN PLACE. LUNGS SOUNDS CLEAR/DIMINISHED. PT HAS O2 2L/MIN VIA NC. PT DENIES PAIN AT THIS TIME. MOROCHO IS PATENT WITH YELLOW URINE. ORIENTED TO CALL LIGHT AND SAFETY PRECAUTIONS REINFORCED. CALL LIGHT IN REACH.
--- NOTE | 2018-01-12 11:39 | NUR ---
PT IS SITTING IN RECLINER. ELEVATED PT LEGS WITH A PILLOW. PT DENIES ANY NEEDS AT THIS TIME. CALL LIGHT IN REACH.
--- NOTE | 2018-01-12 12:29 | NUR ---
DR. CRUZ AND SHEKHAR TO ASSESS PT. ORDERS RECEIVED.
--- NOTE | 2018-01-12 16:00 | NUR ---
PT IS SITING IN RECLINER VISITING WITH FAMILY. PT DENIES ANY NEEDS AT THIS TIME.
--- NOTE | 2018-01-12 19:15 | NUR ---
PT.IS UPRIGHT IN RECLINER WATCHING TV. DENIES ANY NEEDS AT THIS TIME. WILL FOLLOW-UP W/PM MEDICATIONS AND ASSESSMENT.
--- NOTE | 2018-01-12 21:45 | NUR ---
PT.MEDICATED ORDERS PROVIDE, ASSISTED TO BED FROM RECLINER AND ASSISTED W/CPAP. PT.DENIES ANY OTHER NEEDS, LIGHTS ARE LOW AND TV IS ON. PT.ENCOURAGED TO CALL IF ANY NEEDS ARISE.
[2018-01-13 00:53] VITALS: BP 106/65
--- NOTE | 2018-01-13 04:00 | NUR ---
PT.IS IN BED W/CPAP ON AND LIGHTS OUT. PT.AWOKE SLIGHTLY TO MY VOICE UPON ENTERING ROOM. V/S ASSESSED, MOROCHO CATHETER DRAINING AND EMPTIED OF 700CC OF CLOUDY YELLOW URINE. PT.C/O BEING COLD, BLANKET PROVIDED AND ROOM TURNED WARMER, DENIES ANY OTHER NEEDS AT THIS TIME, CALL LIGHT IS W/IN REACH.
[2018-01-13 04:05] VITALS: BP 113/50
[2018-01-13 05:05] LABS: HEMATOCRIT 36.2 % (37.0-47.0); HEMOGLOBIN 11.2 g/dl (12.0-16.0); IMMATURE GRANULOCYTES 0.8 % (0.0-1.0); MEAN CELL VOLUME 90.7 fL CALC (80.0-100.0); MEAN CORPUSCULAR HGB 28.1 pG CALC (26.0-32.0); MEAN CORPUSCULAR HGB CONC 30.9 g/L CALC (32.0-36.0); NEUT# 4.88 thou/uL (2.00-7.15); RED BLOOD COUNT 3.99 mill/uL (4.20-5.60); RED CELL DISTRI WIDTH 18.3 % (11.5-15.5)
[2018-01-13 05:14] LABS: ANION GAP 13 (6-22 (CALC)); BUN 15 mg/dL (8-23); BUN/CREATININE RATIO 18 (12-20 (CALC)); CARBON DIOXIDE 36 mmol/l (22-30); CHLORIDE 97 mmol/l (95-108); CREATININE 0.9 mg/dL (0.5-1.0); GFR 60 ML/MIN (>=60 (CALC)); GFR FOR AFR.AMER. > 60 ML/MIN (>=60 (CALC)); MAGNESIUM 1.8 mg/dL (1.6-2.3); SODIUM 142 mmol/l (137-146)
[2018-01-13 05:18] LABS: INTERNATIONAL NORMALIZED RATIO 2.5 RATIO (0.7-1.3); PROTHROMBIN TIME 28.4 SECONDS (9.0-12.5)
[2018-01-13 05:27] LABS: POTASSIUM 4.1 mmol/l (3.5-5.1)
--- NOTE | 2018-01-13 06:25 | NUR ---
PT.MEDICATED ORDERS PROVIDE, DENIES ANY NEEDS AT THIS TIME. MOROCHO CATHETER DRAINING CLOUDY YELLOW URINE AT THIS TIME.
--- NOTE | 2018-01-13 07:00 | NUR ---
RECEIVED BEDSIDE REPORT FROM LOIS MARRUFO. RESTING IN BED WITH EYES CLOSED, AWAKENS EASILY. RESPS EVEN AND UNLABORED ON HOME CPAP, TELE MONITOR IN PLACE. DENIES PAIN OR DISCOMFORT. SAFETY PRECAUTIONS REINFORCED. BED IN LOWEST POSITION WITH WHEELS LOCKED. CALL LIGHT WITHIN REACH. WILL CONTINUE TO MONITOR.
[2018-01-13 08:25] VITALS: BP 95/63
[2018-01-13 11:14] VITALS: BP 116/59
--- NOTE | 2018-01-13 12:00 | NUR ---
SITTING IN BEDSIDE CHAIR. RESPS EVEN AND UNLABORED WITHOUT EXERTION, TELE MONITOR IN PLACE. MOROCHO PATENT, DRAINING YELLOW URINE TO GRAVITY. VOICES NO NEEDS AT THIS TIME. CALL LIGHT WITHIN REACH. WILL CONTINUE TO MONITOR.
[2018-01-13 15:00] LABS: ALKALINE PHOSPHATASE 73 u/l (38-126); ANION GAP 13 (6-22 (CALC)); BILIRUBIN, TOTAL 0.5 mg/dL (0.0-1.4); BUN 15 mg/dL (8-23); BUN/CREATININE RATIO 17 (12-20 (CALC)); CARBON DIOXIDE 34 mmol/l (22-30); CHLORIDE 97 mmol/l (95-108); CREATININE 0.9 mg/dL (0.5-1.0); GFR 60 ML/MIN (>=60 (CALC)); GFR FOR AFR.AMER. > 60 ML/MIN (>=60 (CALC)); POTASSIUM 4.1 mmol/l (3.5-5.1); SGOT/AST 37 u/l (9-36); SGPT/ALT 20 u/l (11-66); SODIUM 141 mmol/l (137-146); TOTAL PROTEIN 5.8 g/dL (6.3-8.2)
--- NOTE | 2018-01-13 15:03 | NUR ---
Vancomycin consult Age: 82 years Weight: 118.87 kg Height: 157.48 cm Gender: Female SCR: 0.9 mg/dl Dosing weight: 77.608 kg IBW: 50.10 kg CRCL (ml/min): 59 Russel (hr-1): 0.036 Half-life (hrs): 19.25 Vd (liters): 83.21 (factor: 0.7 L/kg) Vancomycin 1000 mg q12 hrs to produce a predicted peak of 30 mcg/ml and a predicted trough of 18 mcg/ml based on (Population-based pharmacokinetic analysis).
[2018-01-13 15:12] VITALS: BP 102/51
--- NOTE | 2018-01-13 16:00 | NUR ---
SITTING IN BEDSIDE CHAIR WITH BILAT FEET ELEVATED. RESPS EVEN AND UNLABORED ON O2 VIA NC, TELE MONITOR IN PLACE. #20 RAC INFUSING WITHOUT DIFFICULTY, SITE APPEARS HEALTHY. DENIES PAIN OR DISCOMFORT. CALL LIGHT GILDARDO LABOY. WILL CONTINUE TO MONITOR.
--- NOTE | 2018-01-13 16:35 | NUR ---
Patient is feeling okay. Pt was educated on current medications and what they are used for. Patient confirmed understanding.
[2018-01-13 18:45] VITALS: BP 109/53
--- NOTE | 2018-01-13 22:20 | NUR ---
PT.IV WAS FOUND DISLODGED, [employer] [place]AMOND WAS ABLE TO PLACE A NEW IV 22RFA SL. PT.WAS MEDICATED ORDERS PROVIDE, BED LEFT IN LOWER POSITION AND LIGHTS TURNED LOW. RESPIRATORY IS IN NOW ASSISTING PT.WITH CPAP MACHINE.
[2018-01-14] VITALS (7 sets, daily range): BP systolic 93–132; BP diastolic 49–76
--- NOTE | 2018-01-14 03:31 | NUR ---
PT.APPEARS TO BE SLEEPING, CPAP IS ON, LIGHTS ARE OFF AND CALL LIGHT AT SIDE. NO S/S OF DISTRESS AT THIS TIME
[2018-01-14 04:41] LABS: HEMATOCRIT 32.6 % (37.0-47.0); IMMATURE GRANULOCYTES 0.7 % (0.0-1.0); MEAN CELL VOLUME 90.3 fL CALC (80.0-100.0); MEAN CORPUSCULAR HGB 27.7 pG CALC (26.0-32.0); MEAN CORPUSCULAR HGB CONC 30.7 g/L CALC (32.0-36.0); NEUT# 5.33 thou/uL (2.00-7.15); RED BLOOD COUNT 3.61 mill/uL (4.20-5.60); RED CELL DISTRI WIDTH 18.3 % (11.5-15.5)
--- NOTE | 2018-01-14 05:19 | NUR ---
PT.MEDICATED ORDERS PROVIDE. PT.IS IN BED W/LIGHTS OUT ANC CPAP ON. PT.HAS CALL LIGHT AT SIDE AND DENIES ANY OTHER NEEDS AT THIS TIME.
--- NOTE | 2018-01-14 07:00 | NUR ---
RECEIVED BEDSIDE REPORT FROM LOIS MARRUFO. RESTING IN SEMI FOWLERS WITH CPAP IN PLACE, RESPS EVEN AND UNLABORED, TELE MONITOR IN PLACE. #22 RFA INFUSING WITHOUT DFFICULTY, SITE APPEARS HEALTHY. DENIES PAIN OR DISCOMFORT. MOROCHO PATENT, DRAINING YELLOW URINE TO GRAVITY, STRAP TO UPPER RIGHT LEG. PLAN OF CARE DISCUSSED, SAFETY PRECAUTIONS REINFORCED. BED IN LOWEST POSITION WITH WHEELS LOCKED. CALL LIGHT WITHIN REACH.
--- NOTE | 2018-01-14 10:15 | NUR ---
DR PIERRE IN WITH PT, NEW ORDERS RECEIVED.
--- NOTE | 2018-01-14 11:00 | NUR ---
ASSISTED TO BED WITH BILAT FEET ELEVATED ON PILLOWS, CHUCK WRAP TO BILAT LOWER LEGS INTACT. CALL LIGHT WITHIN REACH. WILL CONTINUE TO MONITOR.
--- NOTE | 2018-01-14 12:00 | NUR ---
ASSISTED TO BEDSIDE CHAIR, REFUSED TO STAY IN BED, REPORTS SLEEPS IN RECLINER AT HOME. CALL LIGHT WITHIN REACH. WILL CONTINUE TO MONITOR.
--- NOTE | 2018-01-14 12:35 | NUR ---
SITTING IN BEDSIDE CHAIR WITH BILAT FEET ELEVATED. RESPS EVEN AND UNLABORED ON O2 VIA NC, TELE MONITOR IN PLACE. REPORTS UNABLE TO STAY IN BED "THAT BED GIVES ME CLAUSTROPHOBIA. I SLEEP IN MY RECLINER AT HOME." MEDICATED WITH XANAX PO FOR C/O ANXIETY. CHUCK WRAPS TO BILAT LOWER EXTREMITIES. PO FLUIDS OFFERED. CALL LIGHT WITHIN REACH. WILL CONTINUE TO MONITOR.
--- NOTE | 2018-01-14 16:30 | NUR ---
SITTING IN BEDSIDE CHAIR, RESPS EVEN AND UNLABORED ON O2 VIA NC, TELE MONITOR IN PLACE. CHUCK WRAPS TO BILAT LOWER LEGS INTACT, REFUSES TO ELEVATE FEET AT THIS TIME. CALL LIGHT WITHIN REACH.
--- NOTE | 2018-01-14 20:08 | NUR ---
REPORT RECEIVED FROM DAY NURSE, PT.IS UPRIGHT IN RELCLINER WITH FEET ON FLOOR AND CALL LIGHT IN HAND. PT.IS WATCHING TV W/LIGHTS ON. SHE DENIES ANY NEEDS AT THIS TIME AND STATES THAT SHE WILL MOVE TO THE BED WHEN I BRING HER EVENING MEDICATIONS.
--- NOTE | 2018-01-14 21:50 | NUR ---
PT.MEDICATED ORDERS PROVIDE, ASSESSED AND ASSISTED W/CPAP. PT.MEDICATED W/MIRILAX/REPORTS NO BM. SHE REFUSED SUPPOSITORY OR MOM AT THIS TIME STATING THAT SHE DOESN'T WANT TO BE UP ALL NIGHT. PT.LEFT IN BED W/FEET ELEVATED AND CPAP ON. PT.DENIES ANY PAIN/N/V AT THIS TIME OR ANY OTHER NEEDS. CALL LIGHT IS IN HAND AND TV ON.
--- NOTE | 2018-01-15 02:00 | NUR ---
PT.IS IN BED SLEEPING AT THIS TIME. CPAP ON, BED IN LOWEST POSITION, LIGHTS OUT AND CALL LIGHT AT SIDE. DOOR HAS BEEN LEFT OPEN PER REQUEST.
[2018-01-15 04:05] VITALS: BP 103/62
--- NOTE | 2018-01-15 04:13 | NUR ---
PT.V/S ASSESSED AND ANTIBIOTIC THERAPY ADMINISTERED. PT.IS IN BED W/LIGHTS OUT AND CPAP ON. EXTRA BLANKET PROVIDED/REQUEST, CALL LIGHT AT SIDE AND PT.ENCOURAGED TO CALL IF ANY NEEDS ARISE.
--- NOTE | 2018-01-15 08:50 | NUR ---
ASSESSMENT IS COMPLETED: IV SITE IS FREE FROM REDNESS OR EDEMA. HR IS REG,PULSES ARE STRONG X4. ABD IS SOFT WITH ACTIVE BS. MOROCHO INTACT. CONTINUE TO OSBERVE AND MONITOR/
[2018-01-15 09:39] VITALS: BP 96/62
--- NOTE | 2018-01-15 12:15 | NUR ---
PT IS RELAXING IN BED WAS IN THE CHAIR, IV SITE IS FREE FROM REDNESS OR EDEMA. NO DISTRESS NOTED. CONTINUE TO OSBERVE AND MONITOR.
[2018-01-15 13:00] VITALS: BP 113/65
[2018-01-15 15:57] VITALS: BP 124/66
--- NOTE | 2018-01-15 16:15 | NUR ---
PT HAS BEEN IN THE BED, ANXIETY ISSUES AND PT WANTING TO GET BACK IN THE CHAIR,. FEELS LIKE THE BED IS SUFFOCATING HER. IV SITE STARTED TO LEAK AND ATTEMPTED X4 TO RESTART THE IV UNSUCCESSFUL. INFORMED DR TREVIÑO: MEDICATION THAT IS DUE AND UNABLE TO GET IV RESTARTED , NEW ORDERS RECEIVED.
[2018-01-15 19:00] VITALS: BP 119/72
--- NOTE | 2018-01-15 19:35 | NUR ---
NOTIFIED PHYSICIAN THAT WE WERE UNABLE TO ACCESS IV SITE AND BUMEX PO WAS ORDERED IN PLACE OF THE NIGHLY IV BUMEX.
--- NOTE | 2018-01-15 21:30 | NUR ---
EDGARDO, APPRENTICE/LINEMAN WAS UP TO FLOOR AND ABLE TO ACCESS IV SITE FOR PT.
[2018-01-16] VITALS: BP 102/67
--- NOTE | 2018-01-16 00:20 | NUR ---
PT.IS IN BED SLEEPING AT THIS TIME W/CPAP ON. LIGHTS AND TV ARE OFF AND CALL LIGHT IS AT SIDE. NO S/S OF DISTRESS AT THIS TIME.
[2018-01-16 04:40] VITALS: BP 91/59
--- NOTE | 2018-01-16 05:23 | NUR ---
PT.MEDICATED AT THIS TIME, CPAP IS ON, LIGHTS OFF AND PT.GOING BACK TO SLEEP. NO S/S OF DISTRESS, DENIES ANY OTHER NEEDS AT THIS TIME
--- NOTE | 2018-01-16 08:20 | NUR ---
ASSESSMENT IS COMPLTED: IV SITE IS FREE FROM REDNESS OR EDEMA. LEGS DRESSED WITH CHUCK WRAP. BREATH SOUNDS ARE CLEAR,BILATERALLY AND DIMINISHED IN BASES BILATERALLY, HR IS REG,PULSES ARE STRONG SOME PINK ON THE LEGS. TELE MONITOR IN PLACE. CONTINUE TO OBSERVE AND MONITOR
[2018-01-16 09:46] LABS: INTERNATIONAL NORMALIZED RATIO 1.8 RATIO (0.7-1.3); PROTHROMBIN TIME 20.1 SECONDS (9.0-12.5)
[2018-01-16 10:11] LABS: HEMATOCRIT 36.3 % (37.0-47.0); HEMOGLOBIN 11.1 g/dl (12.0-16.0); MEAN CELL VOLUME 91.2 fL CALC (80.0-100.0); MEAN CORPUSCULAR HGB 27.9 pG CALC (26.0-32.0); MEAN CORPUSCULAR HGB CONC 30.6 g/L CALC (32.0-36.0); NEUT# 5.88 thou/uL (2.00-7.15); RED BLOOD COUNT 3.98 mill/uL (4.20-5.60); RED CELL DISTRI WIDTH 18.1 % (11.5-15.5)
[2018-01-16 10:30] LABS: ANION GAP 13 (6-22 (CALC)); BUN 18 mg/dL (8-23); BUN/CREATININE RATIO 20 (12-20 (CALC)); CARBON DIOXIDE 38 mmol/l (22-30); CHLORIDE 93 mmol/l (95-108); CREATININE 0.9 mg/dL (0.5-1.0); GFR 60 ML/MIN (>=60 (CALC)); GFR FOR AFR.AMER. > 60 ML/MIN (>=60 (CALC)); MAGNESIUM 1.9 mg/dL (1.6-2.3); SODIUM 140 mmol/l (137-146)
[2018-01-16 11:11] VITALS: BP 117/63
--- NOTE | 2018-01-16 12:30 | NUR ---
PT HAS BEEN IN AND OUT OF THE CHAIR. NO DISTRESS NOTED. IV SITE STARTED TO GIVE HER PROBLEMS WITH DOXY. INFUSION. INFORMED SHEKHAR ROGEL AND WAS CHANGED TO PT MEDICATIONS. WILL WAIT FOR ANY REACTIONS THEN PT MAY GO HOME.
[2018-01-16] MEDS ORDERED: DOXYCYC MONO100 M2 PO (13:20)
[2018-01-16] MEDS ORDERED: BUMETANIDE2 MG IN (13:20)
--- NOTE | 2018-01-16 14:30 | NUR ---
REMOVED DRESSING ON HER LEGS AND PICTURES OBTAINED REPLACED WITH CHUCK WRAP . PT TOLERATED WELL.
--- NOTE | 2018-01-16 14:41 | NUR ---
Spoke to pt for discharge med education. Explained doxycycline dosing and not to take with milk, tums, or other substances high in divalent cations such as malox or magnesium. Explained switch from Lasix to Bumex. Pt verbally expressed understanding and had no further questions.
[2018-01-16 15:34] VITALS: BP 107/57
--- NOTE | 2018-01-16 17:00 | NUR ---
IV SITE AND MOROCHO DISCONTIENUD PT WAITING FOR DISCHARGE INSTRUCTIONS TO GO HOME.
--- NOTE | 2018-01-16 18:15 | NUR ---
PT RECEIVED DISCHARGE INSTRUCTIONS AND VERBALIZED UNDERSTANDING. ALL BELONGINGS GIVEN TO PT AND FRIEND. CONTINUE TO OBSERVE AND MONITOR.
== END 2018-01-16 16:23 | disposition home or self-care (01) | DRG 291 ==
LOC: ED 14:58 → ED-I 17:44 → ED 18:00 → ICU 18:01 → MS2 18:01 → ICU 01-10 12:59 → MS2 01-12 06:00
PROVIDERS: Emergency Medicine; Hospitalist; Internal Medicine; Nurse Practitioner Family; ADMIT Internal Medicine; ATTEND Internal Medicine
PROC: 5A09357 Assistance with Respiratory Ventilation, Less than 24 Consecutive Hours, Continuous Positive Airway Pressure (ICD-10-PCS; principal; 2018-01-09)
DX: I13.0 Hypertensive heart and chronic kidney disease with heart failure and stage 1 through stage 4 chronic kidney disease, or unspecified chronic kidney disease (principal); I50.33 Acute on chronic diastolic (congestive) heart failure; J96.21 Acute and chronic respiratory failure with hypoxia; N17.9 Acute kidney failure, unspecified; J18.9 Pneumonia, unspecified organism; E11.22 Type 2 diabetes mellitus with diabetic chronic kidney disease; E83.42 Hypomagnesemia; E66.2 Morbid (severe) obesity with alveolar hypoventilation; J44.0 Chronic obstructive pulmonary disease with (acute) lower respiratory infection; N18.3 Chronic kidney disease, stage 3 (moderate); I48.2 Chronic atrial fibrillation; I48.92 Unspecified atrial flutter; J96.22 Acute and chronic respiratory failure with hypercapnia; L02.415 Cutaneous abscess of right lower limb; L03.115 Cellulitis of right lower limb; L03.116 Cellulitis of left lower limb; N39.0 Urinary tract infection, site not specified; Z68.42 Body mass index [BMI] 45.0-49.9, adult; L02.416 Cutaneous abscess of left lower limb; I89.0 Lymphedema, not elsewhere classified; I35.0 Nonrheumatic aortic (valve) stenosis; E87.6 Hypokalemia; E03.9 Hypothyroidism, unspecified; M47.819 Spondylosis without myelopathy or radiculopathy, site unspecified; D64.9 Anemia, unspecified; I87.8 Other specified disorders of veins; R47.02 Dysphasia; F32.9 Major depressive disorder, single episode, unspecified; K59.00 Constipation, unspecified; Z85.3 Personal history of malignant neoplasm of breast; Z79.01 Long term (current) use of anticoagulants; Z87.891 Personal history of nicotine dependence; Z99.81 Dependence on supplemental oxygen; Z79.4 Long term (current) use of insulin

== ENCOUNTER 2018-01-31 17:24 | Inpatient (IN) | payer MEDICARE, BC ==
[~2018-01-31] VITALS: Ht 157.5 cm; Wt 119.5 kg
[~2018-01-31 17:24] MED LIST changes: +B-121000 MC5 SL; +BUMETANIDE2 MG IN; +CALCIUM 600600 M1 PO; +COUMADIN4 MG PO; +DILTIAZEM HCL240 MG PO; +DOCUSATE CAL240 MG PO; +DOXYCYC MONO100 M2 PO; +DUONEB IN; +K-TAB20 MEQ PO; +LEVOTHYROXIN175 MC1 PO; +MAG OXIDE400 MG PO; +MELATONIN3 M1 PO; +METOLAZONE5 MG PO; +METOPROL TAR25 MG PO; +MILK OF MAG30 ML/UDC PO; +MONTELUKAST SOD10 MG PO; +MULTIVITAMI9 PO; +NOVOLOG100 UNIT/M SC; +SENNA-TABS8.6 MG PO; +TRAMADOL HYDROC50 MG PO; +XANAX0.5 MG PO
[2018-01-31 17:55] LABS: HEMATOCRIT 34.9 % (37.0-47.0); HEMOGLOBIN 10.5 g/dl (12.0-16.0); IMMATURE GRANULOCYTES 0.7 % (0.0-1.0); MEAN CELL VOLUME 92.8 fL CALC (80.0-100.0); MEAN CORPUSCULAR HGB 27.9 pG CALC (26.0-32.0); MEAN CORPUSCULAR HGB CONC 30.1 g/L CALC (32.0-36.0); NEUT# 8.72 thou/uL (2.00-7.15); RED BLOOD COUNT 3.76 mill/uL (4.20-5.60); RED CELL DISTRI WIDTH 18.2 % (11.5-15.5)
[2018-01-31 18:10] LABS: ALBUMIN 3.7 g/dL (3.2-5.0); ALKALINE PHOSPHATASE 121 u/l (38-126); ANION GAP 14 (6-22 (CALC)); BILIRUBIN, TOTAL 0.4 mg/dL (0.0-1.4); BUN 19 mg/dL (8-23); BUN/CREATININE RATIO 20 (12-20 (CALC)); CARBON DIOXIDE 38 mmol/l (22-30); CHLORIDE 97 mmol/l (95-108); GFR 53 ML/MIN (>=60 (CALC)); GFR FOR AFR.AMER. > 60 ML/MIN (>=60 (CALC)); SGOT/AST 25 u/l (9-36); SGPT/ALT 26 u/l (11-66); SODIUM 144 mmol/l (137-146); TOTAL PROTEIN 7.2 g/dL (6.3-8.2)
[2018-01-31 18:12] LABS: POTASSIUM 4.5 mmol/l (3.5-5.1)
[2018-01-31 18:23] LABS: MYOGLOBIN 35 ng/mL (0 - 62)
[2018-01-31 18:32] LABS: URINE BILIRUBIN - DIPSTICK NEGATIVE (NEGATIVE); URINE BLOOD DIPSTICK NEGATIVE (NEGATIVE); URINE CLARITY CLEAR; URINE COLOR YELLOW; URINE GLUCOSE - DIPSTICK NEGATIVE (NEGATIVE); URINE KETONE NEGATIVE (NEGATIVE); URINE LEUK ESTERASE NEGATIVE (NEGATIVE); URINE NITRITE - DIPSTICK NEGATIVE (Negative); URINE PH 5.5 (4.5-8.0); URINE PROTEIN - DIPSTICK NEGATIVE (NEG-TRACE); URINE SPECIFIC GRAVITY 1.015; URINE UROBILINOGEN - DIPSTICK 0.2 E.U./dL (0.2)
[2018-01-31 18:32] LABS: INTERNATIONAL NORMALIZED RATIO 3.8 RATIO (0.7-1.3); PROTHROMBIN TIME 43.1 SECONDS (9.0-12.5)
[2018-01-31 21:15] VITALS: BP 129/65
[2018-01-31 21:30] VITALS: BP 101/53
[2018-01-31 22:15] VITALS: BP 115/59
[2018-01-31 22:30] VITALS: BP 122/52
[2018-01-31 23:30] VITALS: BP 122/59
[2018-02-01] VITALS (23 sets, daily range): BP systolic 85–133; BP diastolic 39–70
[2018-02-01 05:56] LABS: MEAN CELL VOLUME 91.1 fL CALC (80.0-100.0); MEAN CORPUSCULAR HGB 28.5 pG CALC (26.0-32.0); MEAN CORPUSCULAR HGB CONC 31.3 g/L CALC (32.0-36.0); RED BLOOD COUNT 3.16 mill/uL (4.20-5.60)
[2018-02-01 06:01] LABS: HEMATOCRIT 28.8 % (37.0-47.0)
[2018-02-01 06:03] LABS: INTERNATIONAL NORMALIZED RATIO 3.9 RATIO (0.7-1.3)
[2018-02-01 06:08] LABS: PROTHROMBIN TIME 45.4 SECONDS (9.0-12.5)
[2018-02-01 06:16] LABS: ANION GAP 15 (6-22 (CALC)); BUN 24 mg/dL (8-23); BUN/CREATININE RATIO 24 (12-20 (CALC)); CARBON DIOXIDE 32 mmol/l (22-30); CHLORIDE 98 mmol/l (95-108); GFR 53 ML/MIN (>=60 (CALC)); GFR FOR AFR.AMER. > 60 ML/MIN (>=60 (CALC)); POTASSIUM 4.5 mmol/l (3.5-5.1); SODIUM 140 mmol/l (137-146)
[2018-02-01 06:20] LABS: MAGNESIUM 1.9 mg/dL (1.6-2.3)
[2018-02-02] VITALS (21 sets, daily range): BP systolic 81–115; BP diastolic 41–64
[2018-02-02 05:08] LABS: HEMATOCRIT 28.3 % (37.0-47.0); HEMOGLOBIN 8.9 g/dl (12.0-16.0); MEAN CELL VOLUME 90.7 fL CALC (80.0-100.0); MEAN CORPUSCULAR HGB 28.5 pG CALC (26.0-32.0); MEAN CORPUSCULAR HGB CONC 31.4 g/L CALC (32.0-36.0); RED BLOOD COUNT 3.12 mill/uL (4.20-5.60); RED CELL DISTRI WIDTH 18.3 % (11.5-15.5)
[2018-02-02 05:31] LABS: CREATININE 1.1 mg/dL (0.5-1.0); MAGNESIUM 2.2 mg/dL (1.6-2.3)
[2018-02-02 05:33] LABS: POTASSIUM 3.5 mmol/l (3.5-5.1)
[2018-02-02 05:54] LABS: INTERNATIONAL NORMALIZED RATIO 3.3 RATIO (0.7-1.3); PROTHROMBIN TIME 38.2 SECONDS (9.0-12.5)
[2018-02-03 00:01] VITALS: BP 95/53
== END 2018-02-03 00:25 | disposition short-term general hospital (02) | DRG 291 ==
LOC: ED 17:24 → ED-I 18:37 → ED 19:26 → ICU 19:27
PROVIDERS: Emergency Medicine; ADMIT Internal Medicine; ATTEND Internal Medicine
PROC: 0T9B70Z Drainage of Bladder with Drainage Device, Via Natural or Artificial Opening (ICD-10-PCS; principal; 2018-01-31)
PROC: 5A09457 Assistance with Respiratory Ventilation, 24-96 Consecutive Hours, Continuous Positive Airway Pressure (ICD-10-PCS; 2018-01-31)
DX: I13.0 Hypertensive heart and chronic kidney disease with heart failure and stage 1 through stage 4 chronic kidney disease, or unspecified chronic kidney disease (principal); I50.33 Acute on chronic diastolic (congestive) heart failure; J96.21 Acute and chronic respiratory failure with hypoxia; E11.22 Type 2 diabetes mellitus with diabetic chronic kidney disease; J96.22 Acute and chronic respiratory failure with hypercapnia; Z68.42 Body mass index [BMI] 45.0-49.9, adult; E66.2 Morbid (severe) obesity with alveolar hypoventilation; N18.3 Chronic kidney disease, stage 3 (moderate); J44.9 Chronic obstructive pulmonary disease, unspecified; I48.2 Chronic atrial fibrillation; Z99.81 Dependence on supplemental oxygen; I35.0 Nonrheumatic aortic (valve) stenosis; I89.0 Lymphedema, not elsewhere classified; F41.9 Anxiety disorder, unspecified; E03.9 Hypothyroidism, unspecified; I87.2 Venous insufficiency (chronic) (peripheral); R26.89 Other abnormalities of gait and mobility; M47.819 Spondylosis without myelopathy or radiculopathy, site unspecified; F32.9 Major depressive disorder, single episode, unspecified; D64.9 Anemia, unspecified; Z79.01 Long term (current) use of anticoagulants; Z87.891 Personal history of nicotine dependence; Z85.3 Personal history of malignant neoplasm of breast; Z90.13 Acquired absence of bilateral breasts and nipples